=== PATIENT | female | born 1965 | race Caucasian/White ===

== ENCOUNTER 2017-05-24 14:06 | Inpatient (IN) | payer SELFPAY ==
[2017-05-24] MEDS ORDERED: Metoclopramide HCl 10 MG/2 ML VIAL ONE (14:24)
[2017-05-24] MEDS ORDERED: Lorazepam 2 MG/ML VIAL ONE (14:44)
[2017-05-24 14:50] LABS: #Basophils 0.1 thou/uL (0.0-0.2); #Lymphocytes 0.4 thou/uL (1.20-3.40); #Monocytes 0.5 thou/uL (0.11-0.59); #Neutrophils 7.7 thou/uL (1.40-6.50); %Basophils 0.8 % (0.0-1.0); %Eosinophils 0.1 % (0.0-10.0); %Lymphocytes 4.2 % (21.0-51.0); %Monocytes 6.2 % (0.0-10.0); Hematocrit 41.6 % (36.0-47.0); Mean Platelet Volume 6.7 fL (7.4-10.4); White Blood Cell (WBC) Count 8.6 thou/uL (4.8-10.8)
[2017-05-24 15:07] LABS: ALT (SGPT) 50 U/L (8-55); AST (SGOT) 55 U/L (5-34); Alkaline Phosphatase 86 U/L (40-150); Anion Gap 30 mmol/L (10-20); BUN (Urea Nitrogen) 15 mg/dL (7.0-18.7); Bilirubin, Total 0.5 mg/dL (0.2-1.2); Calc. Creatinine Clearance 0 mL/min (70-130); Calcium 8.9 mg/dL (7.8-10.44); Carbon Dioxide 15 mmol/L (22-29); Chloride 101 mmol/L (98-107); Estimated GFR-MDRD 90; Globulin 3.3 g/dL (2.4-3.5); Protein, Total 7.9 g/dL (6.0-8.3)
[2017-05-24 15:12] LABS: Troponin I Less than 0.010 ng/mL (< 0.028)
[2017-05-24] MEDS ORDERED: Ondansetron ODT 4 MG TAB SL PRN (16:15)
[2017-05-24] MEDS ORDERED: Acetaminophen 325 MG TAB PO PRN ×2 (16:15→16:24)
[2017-05-24] MEDS ORDERED: Ondansetron HCl/PF 4 MG/2 ML Vial IVP PRN (16:15)
[2017-05-24] MEDS ORDERED: Lorazepam 2 MG/ML VIAL SLOW IVP PRN ×2 (16:16→16:24)
[2017-05-24] MEDS ORDERED: cloNIDine 0.1 MG TAB PO PRN (16:24)
[2017-05-24] MEDS ORDERED: Temazepam 15 MG CAP PO PRN (16:24)
[2017-05-24] MEDS ORDERED: Mag-Al 1200 mg/1200 mg/30 ML UDCUP PO PRN (16:24)
[2017-05-24] MEDS ORDERED: Milk Of Magnesia 30 ML UDCUP PO PRN (16:24)
[2017-05-24] MEDS ORDERED: Loratadine 10 MG TAB PO PRN (16:24)
[2017-05-24] MEDS ORDERED: Ondansetron ODT 4 MG TAB PO PRN (16:24)
[2017-05-24] MEDS ORDERED: traZODone HCl 50 MG TAB PO PRN (16:24)
[2017-05-24] MEDS ORDERED: Eucerin (Mineral Oil/Petrolatum,White) 30 gm Jar TOP PRN (16:24)
[2017-05-24] MEDS ORDERED: Zolpidem Tartrate 5 MG TAB PO PRN (16:24)
[2017-05-24] MEDS ORDERED: Diabetic Tussin 200 MG/10 ML UDCUP PO PRN (16:24)
[2017-05-24] MEDS ORDERED: Chloraseptic Spray 180 ml Bottle PO PRN (16:24)
[2017-05-24] MEDS ORDERED: Bisacodyl 10 MG SUPP PR PRN (16:24)
[2017-05-24] MEDS ORDERED: Labetalol HCl 100 MG/20 ML VIAL SLOW IVP PRN (16:24)
[2017-05-24] MEDS ORDERED: Sodium Chloride 0.65% Nasal 44 ML BOT EA NARE PRN (16:24)
[2017-05-24] MEDS ORDERED: Artificial Tear Sol 15 ML BOT EA EYE PRN (16:24)
[2017-05-24] MEDS ORDERED: Senokot 8.6 MG TAB PO PRN (16:24)
[2017-05-24] MEDS ORDERED: Loperamide HCl 2 MG CAP PO PRN (16:24)
[2017-05-24 16:54] VITALS: BMI 26.6
--- NOTE | 2017-05-24 17:04 | HP ---
PRIMARY CARE PHYSICIAN: [facility]. REASON FOR ADMISSION: Alcohol withdrawal syndrome. HISTORY OF PRESENT ILLNESS: A 51-year-old female, who has history of chronic alcoholism, who presen kane to the emergency room on 05/22/2017 for alcohol detoxification help. The patient was discharged home on oral Ativan therapy. The patient did very well without drinking for 3 days. Ativan was he lping her anxiety. This morning, the patient was cleaning her house and she found her hidden vodka bottle and she drank again. Subsequently, she was feeling craving for alcohol and she was jittery a nd decided to come to the emergency room. Normally, she drinks about 1 liter of vodka daily basis. The patient is now realizing that she should quit and she is asking for help for detoxification at home is not working well. In the emergency room, the patient was tachycardic. The patient was anxious jittery, hypertensive. The patient also has a previous history of alcohol withdrawal related seizure. In the emergency ro om, she is given 2 liters of IV fluid, Ativan 2 mg and Reglan 10 mg. At this point, we are admittin g this patient for close monitoring. The patient denies any fever. She denies any UTI symptoms. S he denies any constipation, diarrhea, melena, hematochezia. She denies any abdominal pain. She den ies any headache, fever, chills. REVIEW OF SYSTEMS: The following complete review of systems was negative, unless otherwise mentione d in the HPI or below: Constitutional: Weight loss or gain, ability to conduct usual activities. Skin: Rash, itching. Eyes: Double vision, pain. ENT/Mouth: Nose bleeding, neck stiffness, pain, tenderness. Cardiovascular: Palpitations, dyspnea on exertion, orthopnea. Respiratory: Shortness of breath, wheezing, cough, hemoptysis, fever or night sweats. Gastrointestinal: Poor appetite, abdominal pain, heartburn, nausea, vomiting, constipation, or diar cornelius. Genitourinary: Urgency, frequency, dysuria, nocturia. Musculoskeletal: Pain, swelling. Neurologic/Psychiatric: Anxiety, depression. Allergy/Immunologic: Skin rash, bleeding tendency. Please see my HPI for pertinent positives and negatives. All other review of systems reviewed and n egative except as mentioned in the HPI. ALLERGIES: PENICILLIN and SUMATRIPTAN. CURRENT HOME MEDICATIONS: Trazodone 50 mg p.o. at bedtime, Toprol-XL 25 mg p.o. b.i.d., Prozac 20 m g p.o. daily, and buspirone 15 mg twice daily. PAST MEDICAL HISTORY: Chronic alcoholism, history of paroxysmal atrial fibrillation, history of sei zure secondary to alcohol withdrawal. PAST PSYCHIATRIC HISTORY: Generalized anxiety disorder and depression. PAST SURGICAL HISTORY: Total hysterectomy, cholecystectomy. FAMILY HISTORY: The patient's father from pancreatic/liver cancer, one of sister also has alco hol related pancreatic problem, heart disease runs among several family members. SOCIAL HISTORY: The patient is living with significant other. She is drinking about one gallon vod ka daily basis. She smokes half a pack per day. She denies any other illicit drug abuse. EMERGENCY ROOM COURSE: The patient is given lorazepam 2 mg, IV fluid 2 liters and Reglan 10 mg. PHYSICAL EXAMINATION: VITAL SIGNS: Currently, blood pressure 137/81, pulse 144, respiratory rate 20, temperature 98.3, sa turation 95% on room air, weight 68 kilograms. GENERAL: The patient is currently alert, awake, appears anxious, apprehensive, no obvious acute dis tress. HEENT: Head is normocephalic, atraumatic. Eyes: Pupils round, reactive to light. Extraocular mus cles intact. ENT: Oropharynx within normal limits. Moist mucous membranes. No oral lesions. No pharyngeal maddie thema, no exudate. NECK: Supple. Range of motion is normal. No meningeal signs of irritation. LUNGS: Clear to auscultation without any rhonchi or rales. CARDIAC: S1 and S2 regular, tachycardia, no murmur, no gallop, no rub. ABDOMEN: Soft, bowel sounds present, nontender, nondistended. No organomegaly, no mass, no suprapu bic tenderness. BACK: Unremarkable, no CVA tenderness. EXTREMITIES: Upper extremity passive movement of all joints are normal, generalized tremor noted. EXTREMITIES: Lower extremity: No edema. Good peripheral pulsation. SKIN: No skin rash. HEMATOLOGICAL: No lymphadenopathy. PSYCHIATRIC: Anxious affect. NEUROLOGIC: Nonfocal examination other than generalized tremor. SIGNIFICANT LABORATORY DATA: EKG shows sinus tachycardia. WBC 8.6, hemoglobin 14.6, MCV 102.0, damir telets 178. BMP shows sodium 141, potassium 5.0, chloride 101, carbon dioxide 815, anion gap 30, BU N 15, creatinine 0.69, glucose 137, calcium 8.9. LFTs: AST 55, ALT 50, alkaline phosphatase 86, albumin 4.6. Alcohol level 234. ASSESSMENT AND PLAN: 1. Acute alcohol withdrawal syndrome. The patient has sinus tachycardia, anxiety, generalized trem or with a history of chronic alcoholism. At this point, the patient wants help for alcohol detoxifi cation, we will keep this patient on medical floor. We will treat her with lorazepam 1 or 2 mg IV q .4 hourly p.r.n. We will watch for any alcohol withdrawal related seizure. We will also give her L ibrium 25 mg t.i.d., Valium 5 mg p.o. b.i.d. We will check magnesium, phosphorus level. We will gi ve her clonidine p.r.n. basis for blood pressure and symptomatically treat for nausea and vomiting. We will also give her banana bag. 2. Chronic alcoholism. We will give her banana bag with IV fluid and after that we will consider c hanging to folic acid, thiamine, and vitamin B12 orally. 3. Macrocytic anemia, likely due to alcohol abuse. Continue banana bag for now and after that will change to folic acid, vitamin B12, and thiamine orally. 4. Anion gap acidosis due to liquor use, we will repeat BMP tomorrow. 5. Tobacco abuse disorder. Smoking cessation counseling given. We will offer nicotine patch while in hospital. 6. Sinus tachycardia likely related with a part of alcohol withdrawal syndrome and we will also con tinue with metoprolol 25 mg twice daily. 7. Anxiety and depression. We will continue Prozac 20 mg p.o. daily, buspirone 15 mg twice daily a nd trazodone 50 mg p.o. at bedtime. 8. Deep venous thrombosis prophylaxis, Lovenox 30 mg subcutaneously daily. 9. Gastrointestinal prophylaxis. Pepcid 20 mg IV b.i.d. 10. Code status: The patient is FULL CODE. The patient does not have a surrogate decision maker. 11. Hypertension. We will continue metoprolol 25 mg twice daily and p.r.n. basis blood pressure me dication. Disposition plan based on clinical course. Most likely, the patient will stay in hospital more than 2 midnights. Plan of care discussed with the patient in detail.
[2017-05-24] MEDS ORDERED: FLU VACC QS2017-18 36 mo. & older 0.5 ML SYRINGE IM ONE (17:15)
[2017-05-24] MEDS: Multivitamins, Adult 10 ML, Folic Acid 1 MG, Thiamine HCl 100 MG in Dextrose 5 %-0.45 %... IV SCH ×4 (17:17)
[2017-05-24] MEDS: Sodium Chloride 0.9% 1,000 ML IV SCH (17:21)
[2017-05-24] MEDS: Nicotine 14 MG PATCH TD SCH (17:26)
[2017-05-24] MEDS: Metoprolol Tartrate 25 MG TAB PO SCH ×2 (18:03→20:16)
[2017-05-24] MEDS ORDERED: Metoprolol Tartrate 25 MG TAB PO SCH (18:15)
[2017-05-24] MEDS: busPIRone HCl 5 MG TAB PO SCH (20:14)
[2017-05-24] MEDS: Diazepam 5 MG TAB PO SCH (20:15)
[2017-05-24] MEDS: Famotidine/PF 20 mg/2ml Vial SLOW IVP SCH (20:16)
[2017-05-25] MEDS: Lorazepam 1 MG TAB PO PRN (00:25)
[2017-05-25] MEDS: Sodium Chloride 0.9% 1,000 ML IV SCH (00:58)
[2017-05-25 05:08] LABS: #Lymphocytes 1.3 thou/uL (1.20-3.40); #Monocytes 0.8 thou/uL (0.11-0.59); #Neutrophils 3.7 thou/uL (1.40-6.50); %Basophils 0.1 % (0.0-1.0); %Eosinophils 0.5 % (0.0-10.0); %Lymphocytes 21.7 % (21.0-51.0); %Monocytes 13.4 % (0.0-10.0); Hematocrit 38.6 % (36.0-47.0); Mean Platelet Volume 7.4 fL (7.4-10.4); White Blood Cell (WBC) Count 5.8 thou/uL (4.8-10.8)
[2017-05-25 05:45] LABS: ALT (SGPT) 39 U/L (8-55); AST (SGOT) 42 U/L (5-34); Alkaline Phosphatase 70 U/L (40-150); Anion Gap 13 mmol/L (10-20); BUN (Urea Nitrogen) 9 mg/dL (7.0-18.7); Bilirubin, Total 0.9 mg/dL (0.2-1.2); Calc. Creatinine Clearance 113 mL/min (70-130); Calcium 8.9 mg/dL (7.8-10.44); Carbon Dioxide 27 mmol/L (22-29); Chloride 100 mmol/L (98-107); Estimated GFR-MDRD Greater than 90; Globulin 2.9 g/dL (2.4-3.5); Magnesium 1.8 mg/dL (1.6-2.6); Phosphorus 1.7 mg/dL (2.3-4.7)
[2017-05-25] MEDS: Enoxaparin Sodium 40 MG/0.4 ML SYRINGE SC SCH (07:55)
[2017-05-25] MEDS: busPIRone HCl 5 MG TAB PO SCH ×2 (07:55→20:34)
[2017-05-25] MEDS: Diazepam 5 MG TAB PO SCH ×2 (07:56→20:35)
[2017-05-25] MEDS: FLUoxetine HCl 20 MG CAP PO SCH (07:57)
[2017-05-25] MEDS: Metoprolol Tartrate 25 MG TAB PO SCH ×2 (07:57→20:36)
[2017-05-25] MEDS: Famotidine/PF 20 mg/2ml Vial SLOW IVP SCH ×2 (07:58→20:37)
[2017-05-25] MEDS: Nicotine 14 MG PATCH TD SCH (11:05)
--- NOTE | 2017-05-25 13:24 | PDOC.PN ---
- Subjective Encounter Start Date: 05/25/17 Encounter Start Time: 07:45 Patient seen and examined. No overnight events, still pt is anxious - Objective Resuscitation Status: Resuscitation Status FULL:Full Resuscitation MAR Reviewed: Yes Vital Signs & Weight: Vital Signs (12 hours) Temp Pulse Resp BP BP Pulse Ox 05/25/17 11:57 98.6 F 89 16 169/98 H 99 05/25/17 08:00 98.1 F 103 H 18 99 05/25/17 07:15 98.1 F 103 H 18 139/80 99 05/25/17 04:00 98.9 F 104 H 20 150/92 H 150/92 H 97 Weight Weight 155 lb I&O: 05/24/17 05/25/17 05/26/17 06:59 06:59 06:59 Intake Total 740 180 Output Total 600 Balance 140 180 Result Diagrams: 05/25/17 04:48 05/25/17 04:48 Phys Exam - Physical Examination Constitutional: NAD HEENT: PERRLA, moist MMs, sclera anicteric Neck: no JVD, supple Respiratory: no wheezing, no rales, no rhonchi Cardiovascular: RRR, no significant murmur, no rub Gastrointestinal: soft, non-tender, no distention, positive bowel sounds Musculoskeletal: no edema, pulses present Neurological: non-focal, normal sensation Lymphatic: no nodes Psychiatric: normal affect, A&O x 3 Skin: no rash, normal turgor Dx/Plan (1) Abnormal blood electrolyte level Code(s): E87.8 - OTH DISORDERS OF ELECTROLYTE AND FLUID BALANCE, NEC Status: Acute (2) Alcohol withdrawal syndrome Code(s): F10.239 - ALCOHOL DEPENDENCE WITH WITHDRAWAL, UNSPECIFIED Status: Acute (3) High anion gap metabolic acidosis Code(s): E87.2 - ACIDOSIS Status: Acute (4) Sinus tachycardia Code(s): R00.0 - TACHYCARDIA, UNSPECIFIED Status: Acute (5) Abnormal LFTs Code(s): R79.89 - OTHER SPECIFIED ABNORMAL FINDINGS OF BLOOD CHEMISTRY Status : Chronic (6) Alcohol abuse Code(s): F10.10 - ALCOHOL ABUSE, UNCOMPLICATED Status: Chronic (7) Cannabis abuse Code(s): F12.10 - CANNABIS ABUSE, UNCOMPLICATED Status: Chronic (8) Fatty liver, alcoholic Code(s): K70.0 - ALCOHOLIC FATTY LIVER Status: Chronic (9) Macrocytosis Code(s): D75.89 - OTHER SPECIFIED DISEASES OF BLOOD AND BLOOD-FORMING ORGANS Status: Chronic (10) Tobacco abuse Code(s): Z72.0 - TOBACCO USE Status: Chronic - Plan cont current plan of care * continue banana bag today * continue to treat for alcohol withdrawl * replace phosphorus * medication reviewed as below * symptomatic treatment. Review of Systems - Review of Systems ENT: negative: Ear Pain, Ear Discharge, Nose Pain, Nose Discharge, Nose Congestion, Mouth Pain, Mouth Swelling, Throat Pain, Throat Swelling, Other Respiratory: negative: Cough, Dry, Shortness of Breath, Hemoptysis, SOB with Excertion, Pleuritic Pain, Sputum, Wheezing Cardiovascular: negative: Chest Pain, Palpitations, Orthopnea, Paroxysmal Noc. Dyspnea, Edema, Light Headedness, Other Gastrointestinal: negative: Nausea, Vomiting, Abdominal Pain, Diarrhea, Constipation, Melena, Hematochezia, Other Genitourinary: negative: Dysuria, Frequency, Incontinence, Hematuria, Retention , Other Musculoskeletal: negative: Neck Pain, Shoulder Pain, Arm Pain, Back Pain, Hand Pain, Leg Pain, Foot Pain, Other - Medications/Allergies Allergies/Adverse Reactions: Allergies Allergy/AdvReac Type Severity Reaction Status Date / Time Penicillins Allergy Verified 01/24/17 08:44 sumatriptan [From Imitrex] Allergy Verified 07/15/15 17:54 sumatriptan succinate Allergy Verified 01/24/17 08:44 [From Imitrex] Medications: Current Medications Acetaminophen (Tylenol) 650 mg PO Q4H PRN PRN Reason: Headache/Fever or Pain Hydrocodone Bitart/Acetaminophen ([place] 5/325) 1 tab PO Q4H PRN PRN Reason: Moderate Pain (4-6) Al Hydroxide/Mg Hydroxide (Maalox) 30 ml PO Q6H PRN PRN Reason: Heartburn or Indigestion Artificial Tears (Tears Renewed 15ml Bottle) 0 drop EA EYE PRN PRN PRN Reason: Dry Eyes Bisacodyl (Dulcolax) 10 mg AL Q24H PRN PRN Reason: Constipation Buspirone HCl (Buspar) 15 mg PO BID [facility] Last Admin: 05/25/17 07:55 Dose: 15 mg Chlordiazepoxide HCl (Librium) 10 mg PO TID [facility] Last Admin: 05/25/17 07:56 Dose: 10 mg Clonidine (Catapres) 0.1 mg PO Q4H PRN PRN Reason: Systolic BP > 180 Diazepam (Valium) 5 mg PO BID [facility] Last Admin: 05/25/17 07:56 Dose: 5 mg Enoxaparin Sodium (Lovenox) 40 mg SC 0900 [facility] Last Admin: 05/25/17 07:55 Dose: 40 mg Famotidine (Pepcid) 20 mg SLOW IVP Q12HR [facility] Last Admin: 05/25/17 07:58 Dose: 20 mg Fluoxetine HCl (Prozac) 20 mg PO DAILY [facility] Last Admin: 05/25/17 07:57 Dose: 20 mg Guaifenesin (Robitussin Sf) 200 mg PO Q4H PRN PRN Reason: Cough Multivitamins 10 ml/ Folic Acid 1 mg/ Thiamine HCl 100 mg / Dextrose/Sodium Chloride 1,011.2 mls @ 125 mls/hr IV Q24HR [facility] Last Admin: 05/24/17 17:17 Dose: 1,011.2 mls Labetalol HCl (Normodyne) 20 mg SLOW IVP Q4H PRN PRN Reason: Systolic BP > 180 Loperamide HCl (Imodium) 2 mg PO PRN PRN PRN Reason: Diarrhea/Loose Stools Loratadine (Claritin) 10 mg PO DAILYPRN PRN PRN Reason: Sinus Symptoms Lorazepam (Ativan) 1 mg SLOW IVP Q4H PRN PRN Reason: Anxiety/Agitation Lorazepam (Ativan) 1 mg PO Q4H PRN PRN Reason: Anxiety/Agitation Last Admin: 05/25/17 00:25 Dose: 1 mg Magnesium Hydroxide (Milk Of Magnesium) 30 ml PO DAILYPRN PRN PRN Reason: Constipation Metoprolol Tartrate (Lopressor) 25 mg PO BID [facility] Last Admin: 05/25/17 07:57 Dose: 25 mg Mineral Oil/White Petrolatum (Eucerin Cream) 0 gm TOP BIDPRN PRN PRN Reason: Dry Skin Miscellaneous Medication (Phos-Nak) 1 pkt PO TID-[facility] Last Admin: 05/25/17 11:05 Dose: 1 pkt Nicotine (Nicoderm Patch) 14 mg TD Q24HR [facility] Last Admin: 05/25/17 11:05 Dose: 14 mg Ondansetron HCl (Zofran Odt) 4 mg PO Q6H PRN PRN Reason: Nausea/Vomiting Last Admin: 05/24/17 20:16 Dose: 4 mg Ondansetron HCl (Zofran) 4 mg IVP Q6H PRN PRN Reason: Nausea/Vomiting Phenol (Chloraseptic [place] 180 Ml Bot) 0 ml PO PRN PRN PRN Reason: Sore Throat Senna (Senokot) 2 tab PO HSPRN PRN PRN Reason: Constipation Sodium Chloride ([place] Nasal [place] 0.65%) 0 ml EA NARE QIDPRN PRN PRN Reason: Nasal Congestion Temazepam (Restoril) 15 mg PO HSPRN PRN PRN Reason: Insomnia Trazodone HCl (Desyrel) 50 mg PO HS PRN PRN Reason: Insomnia Zolpidem Tartrate (Ambien) 5 mg PO HSPRN PRN PRN Reason: Insomnia
[2017-05-25] MEDS ORDERED: Clopidogrel Bisulfate 75 MG TAB ONE (16:53)
[2017-05-25] MEDS: Multivitamins, Adult 10 ML, Folic Acid 1 MG, Thiamine HCl 100 MG in Dextrose 5 %-0.45 %... IV SCH ×4 (17:46)
[2017-05-25] MEDS: Ondansetron HCl/PF 4 MG/2 ML Vial IVP PRN (23:08)
[2017-05-26] MEDS: Lorazepam 1 MG TAB PO PRN (00:04)
[2017-05-26] MEDS ORDERED: Potassium Phosphate 15 MMOL, Admixture Fee 1 EACH in Sodium Chloride 0.9% 250 ML 250 ML IVPB SCH (06:45)
[2017-05-26] MEDS: Ondansetron HCl/PF 4 MG/2 ML Vial IVP PRN ×2 (08:11→15:50)
[2017-05-26] MEDS ORDERED: Sodium Phosphate 30 MMOL, Admixture Fee 1 EACH in Sodium Chloride 0.9% 500 ML IVPB SCH (08:15)
[2017-05-26] MEDS: Enoxaparin Sodium 40 MG/0.4 ML SYRINGE SC SCH (08:19)
[2017-05-26] MEDS: Diazepam 5 MG TAB PO SCH ×2 (08:20→20:48)
[2017-05-26] MEDS: Famotidine/PF 20 mg/2ml Vial SLOW IVP SCH ×2 (08:20→20:51)
[2017-05-26] MEDS: Metoprolol Tartrate 25 MG TAB PO SCH ×2 (08:20→20:48)
[2017-05-26] MEDS: FLUoxetine HCl 20 MG CAP PO SCH (08:20)
[2017-05-26] MEDS: busPIRone HCl 5 MG TAB PO SCH ×2 (08:20→20:48)
[2017-05-26] MEDS: HYDROcodone/Acetaminophen 5/325 mg Tablet PO PRN ×3 (09:24→20:40)
--- NOTE | 2017-05-26 13:26 | PDOC.PN ---
- Subjective Encounter Start Date: 05/26/17 Encounter Start Time: 10:30 Patient seen and examined. No new complaints. No overnight events - Objective Resuscitation Status: Resuscitation Status FULL:Full Resuscitation MAR Reviewed: Yes Vital Signs & Weight: Vital Signs (12 hours) Temp Pulse Resp BP BP Pulse Ox 05/26/17 11:47 98.0 F 96 16 102/64 99 05/26/17 08:00 98.1 F 104 H 16 130/79 130/79 100 05/26/17 04:00 98.2 F 90 20 164/84 H 99 Weight Admit Weight 155 lb Weight 155 lb I&O: 05/25/17 05/26/17 05/27/17 06:59 06:59 06:59 Intake Total 740 580 200 Output Total 600 Balance 140 580 200 Result Diagrams: 05/25/17 04:48 05/25/17 04:48 Phys Exam - Physical Examination Constitutional: NAD HEENT: PERRLA, moist MMs, sclera anicteric Neck: no JVD, supple Respiratory: no wheezing, no rales, no rhonchi Cardiovascular: RRR, no significant murmur, no rub Gastrointestinal: soft, non-tender, no distention, positive bowel sounds Musculoskeletal: no edema, pulses present Neurological: non-focal, normal sensation, moves all 4 limbs Psychiatric: normal affect, A&O x 3 Skin: no rash, normal turgor Dx/Plan (1) Abnormal blood electrolyte level Code(s): E87.8 - OTH DISORDERS OF ELECTROLYTE AND FLUID BALANCE, NEC Status: Acute (2) Alcohol withdrawal syndrome Code(s): F10.239 - ALCOHOL DEPENDENCE WITH WITHDRAWAL, UNSPECIFIED Status: Acute (3) High anion gap metabolic acidosis Code(s): E87.2 - ACIDOSIS Status: Acute (4) Sinus tachycardia Code(s): R00.0 - TACHYCARDIA, UNSPECIFIED Status: Acute (5) Abnormal LFTs Code(s): R79.89 - OTHER SPECIFIED ABNORMAL FINDINGS OF BLOOD CHEMISTRY Status : Chronic (6) Alcohol abuse Code(s): F10.10 - ALCOHOL ABUSE, UNCOMPLICATED Status: Chronic (7) Cannabis abuse Code(s): F12.10 - CANNABIS ABUSE, UNCOMPLICATED Status: Chronic (8) Fatty liver, alcoholic Code(s): K70.0 - ALCOHOLIC FATTY LIVER Status: Chronic (9) Macrocytosis Code(s): D75.89 - OTHER SPECIFIED DISEASES OF BLOOD AND BLOOD-FORMING ORGANS Status: Chronic (10) Tobacco abuse Code(s): Z72.0 - TOBACCO USE Status: Chronic - Plan cont current plan of care * replace potassium phosphate * continue to treat for alcohol withdrawl * expecting discharge tomorrow * medication reviewed as below * symptomatic treatment. Review of Systems - Review of Systems ENT: negative: Ear Pain, Ear Discharge, Nose Pain, Nose Discharge, Nose Congestion, Mouth Pain, Mouth Swelling, Throat Pain, Throat Swelling, Other Respiratory: negative: Cough, Dry, Shortness of Breath, Hemoptysis, SOB with Excertion, Pleuritic Pain, Sputum, Wheezing Cardiovascular: negative: Chest Pain, Palpitations, Orthopnea, Paroxysmal Noc. Dyspnea, Edema, Light Headedness, Other Gastrointestinal: negative: Nausea, Vomiting, Abdominal Pain, Diarrhea, Constipation, Melena, Hematochezia, Other Genitourinary: negative: Dysuria, Frequency, Incontinence, Hematuria, Retention , Other Musculoskeletal: negative: Neck Pain, Shoulder Pain, Arm Pain, Back Pain, Hand Pain, Leg Pain, Foot Pain, Other Skin: negative: Rash, Lesions, Daniel, Bruising, Other - Medications/Allergies Allergies/Adverse Reactions: Allergies Allergy/AdvReac Type Severity Reaction Status Date / Time Penicillins Allergy Verified 01/24/17 08:44 sumatriptan [From Imitrex] Allergy Verified 07/15/15 17:54 sumatriptan succinate Allergy Verified 01/24/17 08:44 [From Imitrex] Medications: Current Medications Acetaminophen (Tylenol) 650 mg PO Q4H PRN PRN Reason: Headache/Fever or Pain Last Admin: 05/26/17 06:37 Dose: 650 mg Hydrocodone Bitart/Acetaminophen ([place] 5/325) 1 tab PO Q4H PRN PRN Reason: Moderate Pain (4-6) Last Admin: 05/26/17 09:24 Dose: 1 tab Al Hydroxide/Mg Hydroxide (Maalox) 30 ml PO Q6H PRN PRN Reason: Heartburn or Indigestion Artificial Tears (Tears Renewed 15ml Bottle) 0 drop EA EYE PRN PRN PRN Reason: Dry Eyes Bisacodyl (Dulcolax) 10 mg [place] Q24H PRN PRN Reason: Constipation Buspirone HCl (Buspar) 15 mg PO BID [facility] Last Admin: 05/26/17 08:20 Dose: 15 mg Chlordiazepoxide HCl (Librium) 10 mg PO TID [facility] Last Admin: 05/26/17 09:50 Dose: 10 mg Clonidine (Catapres) 0.1 mg PO Q4H PRN PRN Reason: Systolic BP > 180 Diazepam (Valium) 5 mg PO BID [facility] Last Admin: 05/26/17 08:20 Dose: 5 mg Enoxaparin Sodium (Lovenox) 40 mg SC 0900 [facility] Last Admin: 05/26/17 08:19 Dose: Not Given Famotidine (Pepcid) 20 mg SLOW IVP Q12HR [facility] Last Admin: 05/26/17 08:20 Dose: 20 mg Fluoxetine HCl (Prozac) 20 mg PO DAILY [facility] Last Admin: 05/26/17 08:20 Dose: 20 mg Guaifenesin (Robitussin Sf) 200 mg PO Q4H PRN PRN Reason: Cough Multivitamins 10 ml/ Folic Acid 1 mg/ Thiamine HCl 100 mg / Dextrose/Sodium Chloride 1,011.2 mls @ 125 mls/hr IV Q24HR [facility] Last Admin: 05/25/17 17:46 Dose: 1,011.2 mls Sodium Phosphate 30 mmol/Miscellaneous Medication 1 each/ Sodium Chloride 510 mls @ 63.75 mls/hr IVPB NOW [facility] Stop: 05/26/17 16:00 Last Admin: 05/26/17 09:08 Dose: Not Given Labetalol HCl (Normodyne) 20 mg SLOW IVP Q4H PRN PRN Reason: Systolic BP > 180 Loperamide HCl (Imodium) 2 mg PO PRN PRN PRN Reason: Diarrhea/Loose Stools Loratadine (Claritin) 10 mg PO DAILYPRN PRN PRN Reason: Sinus Symptoms Lorazepam (Ativan) 1 mg SLOW IVP Q4H PRN PRN Reason: Anxiety/Agitation Lorazepam (Ativan) 1 mg PO Q4H PRN PRN Reason: Anxiety/Agitation Last Admin: 05/26/17 00:04 Dose: 1 mg Magnesium Hydroxide (Milk Of Magnesium) 30 ml PO DAILYPRN PRN PRN Reason: Constipation Metoprolol Tartrate (Lopressor) 25 mg PO BID [facility] Last Admin: 05/26/17 08:20 Dose: 25 mg Mineral Oil/White Petrolatum (Eucerin Cream) 0 gm TOP BIDPRN PRN PRN Reason: Dry Skin Miscellaneous Medication (Phos-Nak) 1 pkt PO TID-[facility] Last Admin: 05/26/17 12:51 Dose: 1 pkt Nicotine (Nicoderm Patch) 14 mg TD Q24HR [facility] Last Admin: 05/25/17 11:05 Dose: 14 mg Ondansetron HCl (Zofran Odt) 4 mg PO Q6H PRN PRN Reason: Nausea/Vomiting Last Admin: 05/24/17 20:16 Dose: 4 mg Ondansetron HCl (Zofran) 4 mg IVP Q6H PRN PRN Reason: Nausea/Vomiting Last Admin: 05/26/17 08:11 Dose: 4 mg Phenol (Chloraseptic [place] 180 Ml Bot) 0 ml PO PRN PRN PRN Reason: Sore Throat Senna (Senokot) 2 tab PO HSPRN PRN PRN Reason: Constipation Sodium Chloride ([place] Nasal [place] 0.65%) 0 ml EA NARE QIDPRN PRN PRN Reason: Nasal Congestion Sodium Chloride (Flush - Normal Saline) 10 ml IVF Q12HR [facility] Last Admin: 05/26/17 08:12 Dose: 10 ml Sodium Chloride (Flush - Normal Saline) 10 ml IVF PRN PRN PRN Reason: Saline Flush Temazepam (Restoril) 15 mg PO HSPRN PRN PRN Reason: Insomnia Trazodone HCl (Desyrel) 50 mg PO HS PRN PRN Reason: Insomnia Zolpidem Tartrate (Ambien) 5 mg PO HSPRN PRN PRN Reason: Insomnia
[2017-05-26] MEDS: Multivitamins, Adult 10 ML, Folic Acid 1 MG, Thiamine HCl 100 MG in Dextrose 5 %-0.45 %... IV SCH ×4 (17:36)
[2017-05-26] MEDS: Nicotine 14 MG PATCH TD SCH (17:41)
[2017-05-27 04:46] LABS: #Eosinphils 0.1 thou/uL (0.0-0.7); #Lymphocytes 1.5 thou/uL (1.20-3.40); #Monocytes 0.5 thou/uL (0.11-0.59); #Neutrophils 1.6 thou/uL (1.40-6.50); %Basophils 0.6 % (0.0-1.0); %Eosinophils 1.6 % (0.0-10.0); %Lymphocytes 40.8 % (21.0-51.0); %Monocytes 12.7 % (0.0-10.0); Hematocrit 37.1 % (36.0-47.0); Mean Platelet Volume 8.2 fL (7.4-10.4); Red Blood Cell (RBC) Count 3.66 mill/uL (4.20-5.40); White Blood Cell (WBC) Count 3.6 thou/uL (4.8-10.8)
[2017-05-27 05:39] LABS: Anion Gap 12 mmol/L (10-20); BUN (Urea Nitrogen) 9 mg/dL (7.0-18.7); Calc. Creatinine Clearance 117 mL/min (70-130); Calcium 9.5 mg/dL (7.8-10.44); Carbon Dioxide 29 mmol/L (22-29); Chloride 102 mmol/L (98-107); Estimated GFR-MDRD Greater than 90; Magnesium 1.6 mg/dL (1.6-2.6)
--- NOTE | 2017-05-27 05:54 | PDOC.PN ---
- Subjective Encounter Start Date: 05/27/17 Encounter Start Time: 05:52 Patient seen and examined. No new complaints. No overnight events - Objective Resuscitation Status: Resuscitation Status FULL:Full Resuscitation MAR Reviewed: Yes Vital Signs & Weight: Vital Signs (12 hours) Temp Pulse Resp BP BP Pulse Ox 05/27/17 00:00 98.0 F 88 18 133/87 133/87 98 05/26/17 20:00 98.1 F 96 18 155/95 H 155/95 H 100 05/26/17 19:43 98.1 F 96 16 100 Weight Admit Weight 155 lb Weight 155 lb I&O: 05/25/17 05/26/17 05/27/17 06:59 06:59 06:59 Intake Total 567 699 5225 Output Total 600 Balance 778 261 7373 Result Diagrams: 05/27/17 03:44 05/27/17 03:44 Phys Exam - Physical Examination Constitutional: NAD HEENT: PERRLA, moist MMs, sclera anicteric Neck: no JVD, supple Respiratory: no wheezing, no rales, no rhonchi Cardiovascular: RRR, no significant murmur, no rub Gastrointestinal: soft, non-tender, no distention, positive bowel sounds Musculoskeletal: no edema, pulses present Neurological: non-focal, normal sensation Lymphatic: no nodes Psychiatric: normal affect, A&O x 3 Skin: no rash, normal turgor Dx/Plan (1) Abnormal blood electrolyte level Code(s): E87.8 - OTH DISORDERS OF ELECTROLYTE AND FLUID BALANCE, NEC Status: Acute (2) Alcohol withdrawal syndrome Code(s): F10.239 - ALCOHOL DEPENDENCE WITH WITHDRAWAL, UNSPECIFIED Status: Acute (3) High anion gap metabolic acidosis Code(s): E87.2 - ACIDOSIS Status: Acute (4) Sinus tachycardia Code(s): R00.0 - TACHYCARDIA, UNSPECIFIED Status: Acute (5) Abnormal LFTs Code(s): R79.89 - OTHER SPECIFIED ABNORMAL FINDINGS OF BLOOD CHEMISTRY Status : Chronic (6) Alcohol abuse Code(s): F10.10 - ALCOHOL ABUSE, UNCOMPLICATED Status: Chronic (7) Cannabis abuse Code(s): F12.10 - CANNABIS ABUSE, UNCOMPLICATED Status: Chronic (8) Fatty liver, alcoholic Code(s): K70.0 - ALCOHOLIC FATTY LIVER Status: Chronic (9) Macrocytosis Code(s): D75.89 - OTHER SPECIFIED DISEASES OF BLOOD AND BLOOD-FORMING ORGANS Status: Chronic (10) Tobacco abuse Code(s): Z72.0 - TOBACCO USE Status: Chronic - Plan cont current plan of care * medication reviewed as below * symptomatic treatment * today will plan for discharge * outpt alcohol rehab program advised * counselled to avoid alcohol. Review of Systems - Review of Systems ENT: negative: Ear Pain, Ear Discharge, Nose Pain, Nose Discharge, Nose Congestion, Mouth Pain, Mouth Swelling, Throat Pain, Throat Swelling, Other Respiratory: negative: Cough, Dry, Shortness of Breath, Hemoptysis, SOB with Excertion, Pleuritic Pain, Sputum, Wheezing Cardiovascular: negative: Chest Pain, Palpitations, Orthopnea, Paroxysmal Noc. Dyspnea, Edema, Light Headedness, Other Gastrointestinal: negative: Nausea, Vomiting, Abdominal Pain, Diarrhea, Constipation, Melena, Hematochezia, Other Genitourinary: negative: Dysuria, Frequency, Incontinence, Hematuria, Retention , Other Musculoskeletal: negative: Neck Pain, Shoulder Pain, Arm Pain, Back Pain, Hand Pain, Leg Pain, Foot Pain, Other - Medications/Allergies Allergies/Adverse Reactions: Allergies Allergy/AdvReac Type Severity Reaction Status Date / Time Penicillins Allergy Verified 01/24/17 08:44 sumatriptan [From Imitrex] Allergy Verified 07/15/15 17:54 sumatriptan succinate Allergy Verified 01/24/17 08:44 [From Imitrex] Medications: Current Medications Acetaminophen (Tylenol) 650 mg PO Q4H PRN PRN Reason: Headache/Fever or Pain Last Admin: 05/26/17 06:37 Dose: 650 mg Hydrocodone Bitart/Acetaminophen ([place] 5/325) 1 tab PO Q4H PRN PRN Reason: Moderate Pain (4-6) Last Admin: 05/26/17 20:40 Dose: 1 tab Al Hydroxide/Mg Hydroxide (Maalox) 30 ml PO Q6H PRN PRN Reason: Heartburn or Indigestion Artificial Tears (Tears Renewed 15ml Bottle) 0 drop EA EYE PRN PRN PRN Reason: Dry Eyes Bisacodyl (Dulcolax) 10 mg RI Q24H PRN PRN Reason: Constipation Buspirone HCl (Buspar) 15 mg PO BID [facility] Last Admin: 05/26/17 20:48 Dose: 15 mg Chlordiazepoxide HCl (Librium) 10 mg PO TID [facility] Last Admin: 05/26/17 20:55 Dose: 10 mg Clonidine (Catapres) 0.1 mg PO Q4H PRN PRN Reason: Systolic BP > 180 Diazepam (Valium) 5 mg PO BID [facility] Last Admin: 05/26/17 20:48 Dose: 5 mg Enoxaparin Sodium (Lovenox) 40 mg SC 0900 [facility] Last Admin: 05/26/17 08:19 Dose: Not Given Famotidine (Pepcid) 20 mg SLOW IVP Q12HR [facility] Last Admin: 05/26/17 20:51 Dose: 20 mg Fluoxetine HCl (Prozac) 20 mg PO DAILY [facility] Last Admin: 05/26/17 08:20 Dose: 20 mg Guaifenesin (Robitussin Sf) 200 mg PO Q4H PRN PRN Reason: Cough Multivitamins 10 ml/ Folic Acid 1 mg/ Thiamine HCl 100 mg / Dextrose/Sodium Chloride 1,011.2 mls @ 125 mls/hr IV Q24HR [facility] Last Admin: 05/26/17 17:36 Dose: 1,011.2 mls Labetalol HCl (Normodyne) 20 mg SLOW IVP Q4H PRN PRN Reason: Systolic BP > 180 Loperamide HCl (Imodium) 2 mg PO PRN PRN PRN Reason: Diarrhea/Loose Stools Loratadine (Claritin) 10 mg PO DAILYPRN PRN PRN Reason: Sinus Symptoms Lorazepam (Ativan) 1 mg SLOW IVP Q4H PRN PRN Reason: Anxiety/Agitation Lorazepam (Ativan) 1 mg PO Q4H PRN PRN Reason: Anxiety/Agitation Last Admin: 05/26/17 00:04 Dose: 1 mg Magnesium Hydroxide (Milk Of Magnesium) 30 ml PO DAILYPRN PRN PRN Reason: Constipation Metoprolol Tartrate (Lopressor) 25 mg PO BID [facility] Last Admin: 05/26/17 20:48 Dose: 25 mg Mineral Oil/White Petrolatum (Eucerin Cream) 0 gm TOP BIDPRN PRN PRN Reason: Dry Skin Miscellaneous Medication (Phos-Nak) 1 pkt PO TID[facility] Last Admin: 05/26/17 17:39 Dose: 1 pkt Nicotine (Nicoderm Patch) 14 mg TD Q24HR [facility] Last Admin: 05/26/17 17:41 Dose: 14 mg Ondansetron HCl (Zofran Odt) 4 mg PO Q6H PRN PRN Reason: Nausea/Vomiting Last Admin: 05/24/17 20:16 Dose: 4 mg Ondansetron HCl (Zofran) 4 mg IVP Q6H PRN PRN Reason: Nausea/Vomiting Last Admin: 05/26/17 15:50 Dose: 4 mg Phenol (Chloraseptic [place] 180 Ml Bot) 0 ml PO PRN PRN PRN Reason: Sore Throat Senna (Senokot) 2 tab PO HSPRN PRN PRN Reason: Constipation Sodium Chloride ([place] Nasal [place] 0.65%) 0 ml EA NARE QIDPRN PRN PRN Reason: Nasal Congestion Sodium Chloride (Flush - Normal Saline) 10 ml IVF Q12HR [facility] Last Admin: 05/26/17 20:49 Dose: Not Given Sodium Chloride (Flush - Normal Saline) 10 ml IVF PRN PRN PRN Reason: Saline Flush Temazepam (Restoril) 15 mg PO HSPRN PRN PRN Reason: Insomnia Trazodone HCl (Desyrel) 50 mg PO HS PRN PRN Reason: Insomnia Zolpidem Tartrate (Ambien) 5 mg PO HSPRN PRN PRN Reason: Insomnia
[2017-05-27] MEDS: FLUoxetine HCl 20 MG CAP PO SCH (07:43)
[2017-05-27] MEDS: Metoprolol Tartrate 25 MG TAB PO SCH (07:43)
[2017-05-27] MEDS: busPIRone HCl 5 MG TAB PO SCH (07:43)
[2017-05-27] MEDS: Enoxaparin Sodium 40 MG/0.4 ML SYRINGE SC SCH (07:44)
[2017-05-27] MEDS: Diazepam 5 MG TAB PO SCH (07:44)
[2017-05-27] MEDS: Famotidine/PF 20 mg/2ml Vial SLOW IVP SCH (07:44)
[2017-05-27 08:00] VITALS: BP 150/90; TEMP 98.2
--- NOTE | 2017-05-27 10:21 | DIS ---
PRIMARY CARE PHYSICIAN: [facility] DATE OF ADMISSION: 05/24/2017 DATE OF DISCHARGE: 05/27/2017 DISCHARGE DISPOSITION: Home. PRIMARY DISCHARGE DIAGNOSES: 1. Acute alcohol withdrawal syndrome. 2. Anion gap metabolic acidosis. 3. Sinus tachycardia. 4. Abnormal electrolytes level. SECONDARY DISCHARGE DIAGNOSES: 1. Abnormal liver function tests due to alcohol abuse, alcoholic. 2. Alcohol abuse. 3. Cannabis abuse. 4. Fatty liver. 5. Macrocytosis. 6. Tobacco abuse. PRIMARY PROCEDURE/OPERATION: None. RADIOLOGICAL INVESTIGATION: None. SIGNIFICANT LABORATORY: WBC 3.6, hemoglobin 12.8, MCV 101, platelets 120. Sodium 139, potassium 3.9, BUN 9, creatinine 0.64. Phosphorus 5.0. Magnesium 1.6, AST 42, ALT 39. Cardiac enzymes negative. TSH 0.43. Alcohol level 234 on admission. DISCHARGE MEDICATIONS: Vitamin B12 1000 mcg p.o. daily, Prozac 20 mg p.o. daily , Pepcid 20 mg p.o. b.i.d., folic acid 1 mg p.o. daily, Lopressor 25 mg p.o. b.i.d., thiamine 100 mg p.o. daily, buspirone 15 mg p.o. b.i.d., trazodone 50 mg p.o. at bedtime. CONTRAINDICATIONS: None. CODE STATUS: FULL CODE. INPATIENT CONSULTANTS: None. ALLERGIES: PENICILLIN and SUMATRIPTAN. DISCHARGE PLAN: Post hospital, the patient is advised to follow with primary care physician and alcohol rehabilitation program. HOSPITAL COURSE: A 51-year-old female with above-mentioned medical problem who was admitted by me on 05/24/2017. Please see my HPI for further details. The patient has a long history of alcoholism and she drank alcohol at home and subsequently she decided not to drink further and that is why she was requesting medical help for detoxification and that is why she was admitted to medical floor. She was treated for alcohol withdrawal syndrome. Her abnormal electrolytes were corrected. She was having sinus tachycardia that was related with alcohol withdrawal syndrome that was also improved by the time of discharge. While in hospital, we corrected abnormal electrolytes, hydrated her with IV fluid. Today, the patient is seen and examined at bedside. Today, patient is hemodynamically stable. All new medication prescriptions sent to her pharmacy. The patient is given counseling to avoid alcohol abuse as well as follow up with alcohol rehabilitation program. Total time spent on discharge day more than 30 minutes. MTDD
--- NOTE | 2017-07-11 12:37 | EKG ---
Test Reason : Blood Pressure : / mmHG Vent. Rate : 148 BPM Atrial Rate : 148 BPM P-R Int : 114 ms QRS Dur : 076 ms QT Int : 276 ms P-R-T Axes : 007 039 044 degrees QTc Int : 433 ms Sinus tachycardia Cannot rule out Anterior infarct , age undetermined Nospecific ST-T segment abnormalities Abnormal ECG Confirmed by SHUBHAM GRAHAM ([id number]), editor continuity and script ROB GARCIA ([id number] on 07/11/2017 12:37:34 PM Referred By: Confirmed By:SHUBHAM GRAHAM
== END 2017-05-27 11:37 | disposition home or self-care (01) | DRG 897 ==
LOC: ERS 14:06 → T4-B 15:10
PROVIDERS: ADMIT Internal Medicine; ATTEND Internal Medicine
DX: F10.239 Alcohol dependence with withdrawal, unspecified (principal); E87.2 Acidosis; E87.8 Other disorders of electrolyte and fluid balance, not elsewhere classified; K76.0 Fatty (change of) liver, not elsewhere classified; F12.10 Cannabis abuse, uncomplicated; F17.210 Nicotine dependence, cigarettes, uncomplicated; R00.0 Tachycardia, unspecified; Z23 Encounter for immunization; F41.1 Generalized anxiety disorder; F32.9 Major depressive disorder, single episode, unspecified; D53.9 Nutritional anemia, unspecified; Y90.7 Blood alcohol level of 200-239 mg/100 ml
CPT/HCPCS: 36415; 80048; 80053; 80307; 82553; 83735; 84100; 84443; 84484; 85025; 90471; 90682; 93005; 96365; 96366; 96375; 99406; A4216; G0008; J1650; J2060; J2405; J2765; J3411; J7042; J7050; Q0162; Q2036; S0028

== ENCOUNTER 2017-06-14 09:18 | Emergency (ER) | payer SELFPAY ==
[2017-06-14 10:51] LABS: #Lymphocytes 1.1 thou/uL (1.20-3.40); #Monocytes 0.4 thou/uL (0.11-0.59); #Neutrophils 4.7 thou/uL (1.40-6.50); %Basophils 0.8 % (0.0-1.0); %Eosinophils 0.4 % (0.0-10.0); %Lymphocytes 17.6 % (21.0-51.0); Hematocrit 40.5 % (36.0-47.0); Mean Platelet Volume 7.3 fL (7.4-10.4); Red Blood Cell (RBC) Count 4.07 mill/uL (4.20-5.40); White Blood Cell (WBC) Count 6.3 thou/uL (4.8-10.8)
[2017-06-14 10:56] LABS: Bilirubin Negative (Negative); Blood, Urine Negative (Negative); Glucose, Urine (Dipstick) Negative (Negative); Ketone, Urine Trace mg/dL (Negative); Nitrite Negative (Negative); Protein, Urine (Dipstick) 30 mg/dL (Neg-Trace); Urobilinogen 0.2 mg/dL (0.2-1.0)
[2017-06-14 10:57] LABS: Bacteria/HPF Rare-Few HPF (None Seen); Hyaline Casts/LPF 0-3 HYALINE CAST LPF (0-3 Hyaline); RBC/HPF 0-3 HPF (0-3); Squamous Epithelial 0-3 HPF (0-3); WBC/HPF 0-3 HPF (0-3)
[2017-06-14] MEDS ORDERED: Lorazepam 2 MG/ML VIAL ONE (11:08)
[2017-06-14 11:11] LABS: ALT (SGPT) 30 U/L (8-55); AST (SGOT) 47 U/L (5-34); Alkaline Phosphatase 77 U/L (40-150); Anion Gap 16 mmol/L (10-20); BUN (Urea Nitrogen) 8 mg/dL (7.0-18.7); Bilirubin, Total 0.4 mg/dL (0.2-1.2); Calc. Creatinine Clearance 0 mL/min (70-130); Calcium 9.7 mg/dL (7.8-10.44); Carbon Dioxide 28 mmol/L (22-29); Chloride 101 mmol/L (98-107); Estimated GFR-MDRD Greater than 90; Globulin 3.4 g/dL (2.4-3.5); Protein, Total 7.9 g/dL (6.0-8.3)
== END 2017-06-14 13:35 | disposition home or self-care (01) ==
LOC: ERS 09:18
DX: F10.239 Alcohol dependence with withdrawal, unspecified (principal); E78.5 Hyperlipidemia, unspecified; I10 Essential (primary) hypertension; F41.9 Anxiety disorder, unspecified; F32.9 Major depressive disorder, single episode, unspecified; F17.210 Nicotine dependence, cigarettes, uncomplicated; Z79.899 Other long term (current) drug therapy
CPT/HCPCS: 80053; 81003; 81015; 85025; 96374; J2060

== ENCOUNTER 2017-08-23 07:41 | Inpatient (IN) | payer OTHER, SELFPAY ==
[2017-08-23] MEDS ORDERED: Ondansetron HCl/PF 4 MG/2 ML Vial ONE (08:14)
[2017-08-23] MEDS ORDERED: Lorazepam 2 MG/ML VIAL ONE (08:14)
[2017-08-23 08:19] LABS: #Lymphocytes 0.5 thou/uL (1.20-3.40); #Monocytes 0.6 thou/uL (0.11-0.59); #Neutrophils 8.6 thou/uL (1.40-6.50); %Basophils 0.3 % (0.0-1.0); %Eosinophils 0.1 % (0.0-10.0); %Lymphocytes 4.7 % (21.0-51.0); %Monocytes 6.7 % (0.0-10.0); %Neutrophils 88.3 % (42.0-75.0); Hemoglobin 15.6 g/dL (12.0-16.0); Mean Corpuscular HGB CONC 34.7 g/dL (32.0-36.0); Mean Corpuscular Hemoglobin 35.3 pg (27.0-31.0); Mean Platelet Volume 7.5 fL (7.4-10.4); Platelet Count 239 thou/uL (130-400); RBC Distribution Width 12.3 % (11.5-14.5); Red Blood Cell (RBC) Count 4.41 mill/uL (4.20-5.40); White Blood Cell (WBC) Count 9.7 thou/uL (4.8-10.8)
[2017-08-23] MEDS ORDERED: Multivitamins, Adult 10 ML, Thiamine HCl 100 MG, Folic Acid 1 MG in Dextrose 5 %-0.45 %... IV SCH (08:30)
[2017-08-23 08:35] LABS: Prothrombin Time 12.9 SEC (12.0-14.7)
[2017-08-23 08:42] LABS: ALT (SGPT) 68 U/L (8-55); AST (SGOT) 100 U/L (5-34); Albumin 4.7 g/dL (3.5-5.0); Alkaline Phosphatase 97 U/L (40-150); Anion Gap 30 mmol/L (10-20); BUN (Urea Nitrogen) 19 mg/dL (9.8-20.1); Bilirubin, Total 0.7 mg/dL (0.2-1.2); CK (CPK) 49 U/L (29-168); Calc. Creatinine Clearance 0 mL/min (70-130); Calcium 8.5 mg/dL (7.8-10.44); Carbon Dioxide 14 mmol/L (22-29); Chloride 94 mmol/L (98-107); Estimated GFR-MDRD Greater than 90; Glucose 143 mg/dL (70-105); Lipase 30 U/L (8-78); Protein, Total 7.7 g/dL (6.0-8.3); Sodium 134 mmol/L (136-145)
[2017-08-23 08:46] LABS: CKMB 1.3 ng/mL (0-6.6); Troponin I Less than 0.010 ng/mL (< 0.028)
[2017-08-23 08:48] LABS: PTT 22.6 SEC (22.9-36.1)
[2017-08-23] MEDS ORDERED: Pantoprazole 40 MG VIAL ONE (09:38)
[2017-08-23 10:38] LABS: Bilirubin Negative (Negative); Blood, Urine Trace (Negative); Clarity CLOUDY (Clear); Glucose, Urine (Dipstick) Negative (Negative); Leukocyte Negative (Negative); Nitrite Negative (Negative); Protein, Urine (Dipstick) 300 mg/dL (Neg-Trace); Specific Gravity, Urine 1.027 (1.002-1.036); Urobilinogen 0.2 mg/dL (0.2-1.0)
[2017-08-23 10:41] LABS: Bacteria/HPF None Seen HPF (None Seen); Hyaline Casts/LPF 0-3 HYALINE CAST LPF (0-3 Hyaline); RBC/HPF 0-3 HPF (0-3); Squamous Epithelial 0-3 HPF (0-3); WBC/HPF 0-3 HPF (0-3)
[2017-08-23 10:49] LABS: Bicarbonate (HCO3v) 15.7 mmol/L (1.0-85.0); CO2 Tension (PvCO2) 33.5 mmHg (41.0-51.0); Calcium, Ionized 0.85 mmol/L (1.12-1.32); Hemoglobin - Calc 12.5 g/dL (12.0-18.0); O2 Tension (PvO2) 185.5 mmHg (35.0-45.0); Potassium 4.1 mmol/L (3.4-4.7); T. Carbon Dioxide 16.8 mmol/L (1.0-85.0); vO2 Saturation-calc 99.5 % (0.0-100.0)
[2017-08-23 10:50] LABS: Amphetamine Not Detected (NotDetected); Barbiturates Screen Not Detected (NotDetected); Benzodiazepine Screen Not Detected (NotDetected); Cocaine Metabolite Screen Not Detected (NotDetected); Medtox Control Line Valid? VALID (VALID); Medtox Reader # READER 1; Methadone Not Detected (NotDetected); Methamphetamine Not Detected (NotDetected); Opiate Screen Not Detected (NotDetected); Oxycodone Screen Not Detected (NotDetected); Phencyclidine (PCP) Not Detected (NotDetected); THC/Cannabinoid Screen Not Detected (NotDetected); Tricyclic Screen Not Detected (NotDetected)
[2017-08-23] MEDS ORDERED: Ondansetron ODT 8 MG TAB ONE (11:00)
[2017-08-23] MEDS ORDERED: Diltiazem HCl 125 MG, Admixture Fee 1 EACH in Sodium Chloride 0.9% 100 ML IVPB SCH (12:00)
[2017-08-23] MEDS ORDERED: Lorazepam 2 MG/ML VIAL SLOW IVP PRN (12:35)
[2017-08-23] MEDS ORDERED: Ondansetron HCl/PF 4 MG/2 ML Vial IVP PRN (12:35)
[2017-08-23] MEDS ORDERED: Guaifenesin DM 100-10/5 ML UDCUP PO PRN (12:35)
[2017-08-23 12:36] LABS: Lactic Acid 3.8 mmol/L (0.5-2.2)
[2017-08-23] MEDS ORDERED: Metoprolol Tartrate 50 MG TAB PO SCH (12:45)
[2017-08-23] MEDS ORDERED: Diltiazem 125 MG in Sodium Chloride 0.9% 100 ML IVPB SCH (12:45)
[2017-08-23] MEDS ORDERED: Nicotine 14 MG PATCH TD SCH (13:00)
[2017-08-23] MEDS ORDERED: Digoxin 0.5 MG/2 ML AMP SLOW IVP PRN (15:19)
[2017-08-23 15:24] VITALS: BMI 26.2
[2017-08-23] MEDS ORDERED: busPIRone HCl 10 MG TAB PO SCH (15:30)
[2017-08-23] MEDS ORDERED: Lorazepam 2 MG/ML VIAL SLOW IVP SCH (15:30)
[2017-08-23] MEDS: Sodium Chloride 0.9% 1,000 ML IV SCH ×2 (15:33→15:36)
--- NOTE | 2017-08-23 18:20 | CON ---
DATE OF CONSULTATION: 08/23/2017 REASON FOR CONSULTATION: Atrial fibrillation, rapid ventricular response. HISTORY OF PRESENT ILLNESS: Ms. Contreras is a pleasant 52-year-old white female who comes to the [facility] for nausea, vomiting, and diarrhea. She has a history of inflammatory bowel syndrome apparently f rom her report, and she tells me that every time she stops drinking and goes into withdrawal, she get s an exacerbation of her diarrhea, nausea and vomiting. She stopped drinking about 15 hours ago and has already started going to withdrawal. She has got the shakes, anxiety, and her heart went into at rial fibrillation RVR recently as well. Heart rate in the 150s. She was started on diltiazem drip, so Cardiology consulted for this. She had seen a field interviewer in the past down in [place], now she h as moved to this area has not seen one since. She was told she had atrial fibrillation at that time and she also been told that she needed anticoagulation, but she declined and continues to decline tod ay. PAST MEDICAL HISTORY: 1. Hypertension. 2. Paroxysmal atrial fibrillation. 3. History of alcoholism and drinks about a liter a day. 4. History of cervical cancer surgically removed. 5. Hyperlipidemia. PAST SURGICAL HISTORY: 1. Hysterectomy. 2. Cholecystectomy. SOCIAL HISTORY: She drinks about a liter a day, has not drink in 15 hours, uses marijuana and smokes about half pack a day. FAMILY HISTORY: Noncontributory. OUTPATIENT MEDICATIONS: Include, 1. Trazodone 50 mg a day. 2. Metoprolol 25 mg twice a day. 3. Fluoxetine 20 mg once a day. 4. BuSpar 15 mg twice a day. ALLERGIES: PENICILLIN causes anaphylaxis; SUMATRIPTAN, racing heart beat. REVIEW OF SYSTEMS: A 12-point review of systems was done and is all negative unless stated in the h istory of present illness. PHYSICAL EXAMINATION: VITAL SIGNS: Temperature 99.6; pulse 154, currently at 80; respiratory rate 20; satting 97% on 2 lit ers; blood pressure 97/66. GENERAL: Awake, alert, oriented x3, little anxious with some shakes. HEENT: Normocephalic, atraumatic. NECK: Supple. LUNGS: Clear. CARDIOVASCULAR: S1, S2, no S3, S4. Irregularly irregular. Heart rate in the 80s currently. ABDOMEN: Soft, positive bowel sounds. EXTREMITIES: No edema. SKIN: Warm and dry. LABORATORY WORK: Reviewed. Sodium 134, potassium 4.0, chloride 94, carbon dioxide 14, anion gap of 30, BUN of 19, creatinine 0.65. Glucose of 143, lactic acid was 7.5 down at 3.8, calcium 8.5, magnes ium of 2, bilirubin 0.7, AST 100, ALT 60, alkaline phosphatase 97. CK 49. Troponin is negative x1. CK-MB is normal x1. Albumin of 4.7. UA isidro, cloudy, 300 protein, trace blood, 40 ketones. Beta hydroxybutyrate is a little high at 3.9. UDS is otherwise nondetectable. CBC with a white count of 9, hemoglobin 15, hematocrit 44, platelet count 239. Coags were unremarkab le. ABG was a little acidotic. VBG 7.2 with a CO2 of 33. Escherichia coli O157 is pending. ASSESSMENT AND PLAN: 1. Atrial fibrillation with rapid ventricular response: I would continue the diltiazem drip at this time. She is rate controlled after a second bolus of 5 mg IV once. We will plan on continuing dilt iazem drip for rate control. She is not interested in any anticoagulation for stroke prophylaxis. 2. We will recommend an aspirin a day. Her CHADS-VASc score would be 2 for female in hypertension. 3. Alcohol abuse going through withdrawal per primary team. 4. Diarrhea, nausea, and vomiting per primary team. Thank you for letting us participate in the care of your patient. We will follow.
[2017-08-23] MEDS ORDERED: Diazepam 5 MG TAB PO PRN (19:02)
[2017-08-23] MEDS ORDERED: Diazepam 5 MG TAB PO SCH (19:15)
[2017-08-23] MEDS: busPIRone HCl 10 MG TAB PO SCH (20:23)
[2017-08-23] MEDS: Metoprolol Tartrate 50 MG TAB PO SCH (20:24)
--- NOTE | 2017-08-23 20:50 | HP ---
REASON FOR ADMISSION: Atrial fibrillation with rapid ventricular response, nausea, and vomiting, intractable diarrhea, dehydration, metabolic acidosis, chronic alcohol abuse. HISTORY OF PRESENTING ILLNESS: The patient gives history of having severe nausea and vomiting from yesterday evening. This was associated with watery diarrhea. She claims that she has been passing diarrhea every 10 minutes from yesterday. The patient states she used to drink 1 pint of vodka on a daily basis. She has not been drinking alcohol from yesterday evening after her nausea, vomiting, and diarrhea initiated. On arrival, the patient was found to have had a bicarbonate of 14 with ketones in the urine. She was gently hydrated in the ER. The patient around 12:00 noon, went into atrial fibrillation with RVR while in the ER. She was given Cardizem push 20 mg IV and was started on 5 mg an hour Cardizem drip. She has also received lorazepam 2 mg IV push along with Zofran in the ER. Currently, patient is wanting something to drink. Has no complaints of chest pain. The patient does not have any palpitations, but although her heart rate is in the 140s at present. Total of 3 liters of IV fluid has been given in the ER. No complaints of abdominal pain. PAST MEDICAL AND SURGICAL HISTORY: History of chronic alcohol abuse, history of esophageal stricture with prior dilatation done on 02/[address] Madrigal, hypertension, generalized anxiety, chronic alcohol abuse with drinking up to 1 pint of vodka on a daily basis, seizure secondary to alcohol withdrawal, history of paroxysmal atrial fibrillation, hysterectomy, and cholecystectomy. PERSONAL HISTORY: Drinks up to 1 pint of vodka on a daily basis, smokes half pack a day. Denies substance abuse. She lives alone. Has 2 children. She is close to her daughter. FAMILY HISTORY: Mother is living and healthy. Father of liver cancer and was an alcoholic in his 60s. CURRENT MEDICATIONS: Trazodone 50 mg p.o. at bedtime p.r.n. for insomnia, Lopressor 25 mg p.o. twice daily, fluoxetine 20 mg p.o. q.a.m., buspirone 15 mg p.o. twice daily, Zocor daily. ALLERGIES: PENICILLIN, SUMATRIPTAN. REVIEW OF SYSTEMS: The following complete review of systems was negative, unless otherwise mentioned in the HPI or below: Constitutional: Weight loss or gain, ability to conduct usual activities. Skin: Rash, itching. Eyes: Double vision, pain. ENT/Mouth: Nose bleeding, neck stiffness, pain, tenderness. Cardiovascular: Palpitations, dyspnea on exertion, orthopnea. Respiratory: Shortness of breath, wheezing, cough, hemoptysis, fever or night sweats. Gastrointestinal: Poor appetite, abdominal pain, heartburn, nausea, vomiting, constipation, or diarrhea. Genitourinary: Urgency, frequency, dysuria, nocturia. Musculoskeletal: Pain, swelling. Neurologic/Psychiatric: Anxiety, depression. Allergy/Immunologic: Skin rash, bleeding tendency. PHYSICAL EXAMINATION: GENERAL: The patient is a 52-year-old female, who is currently not in any acute distress, although has atrial fibrillation with RVR with ventricular rates going up to 140s at present. VITAL SIGNS: Blood pressure 126/94, pulse 140 per minute at present, respiratory rate 18 per minute, temperature 98.7 degrees Fahrenheit, saturating 94% on 2 liters of nasal cannula. NECK: Supple, no elevated JVD. HEENT: Eyes: Extraocular muscles intact. Pupils reacting to light. Oral cavity mucous membranes are dry. No exudates or congestion. CARDIOVASCULAR SYSTEM: S1, S2 heard. Irregular rhythm, no murmur. RESPIRATORY SYSTEM: Air entry 1+ bilateral. Scattered rhonchi plus no wheezes. ABDOMEN: Soft, bowel sounds heard. No tenderness, rigidity, or guarding. EXTREMITIES: No peripheral edema or calf tenderness. VASCULAR SYSTEM: Peripheral pulses 1+ bilateral. No ischemic ulcerations or gangrene. CENTRAL NERVOUS SYSTEM: No gross focal deficits seen. PSYCHIATRIC: The patient is a bit anxious, otherwise no hallucinations or delusions. LABORATORY AND X-RAY FINDINGS: Beta hydroxybutyrate 3.96. Urine drug screen is negative. Urine ketones is 40 mg per deciliter. Lactate is 7.5, AST 100, ALT 68, alkaline phosphatase 97, total bilirubin 0.7, lipase is 30. First set of cardiac enzymes are negative. Albumin is 4.7, BUN is 19, creatinine 0.6. Venous blood gas done shows a pH of 7.28. PT/INR is within normal limits. PTT 22. White count of 9, H and H 15 and 44, MCV is 102, platelet count 239 with 88 % neutrophils. CLINICAL IMPRESSION AND PLAN: The patient will be admitted to either IMCU or telemetry for atrial fibrillation with rapid ventricular response, alcohol abuse with likely withdrawal, intractable nausea, vomiting, and diarrhea. We will continue her Cardizem on 10 mg an hour and will also give one dose of 50 mg Lopressor orally. She will be on 50 mg twice daily, thereafter. She will be on banana bag to alternate with normal saline at 80 mL per hour. I have spoken to Dr. Mathew for Cardiology and Dr. Galindo for Gastroenterology. The patient's lipase is within normal limits and her abdomen is benign with no signs or symptoms to suggest pancreatitis for now. We will continue her buspirone, Prozac as before. Patient will be on ASE protocol for withdrawal. If her atrial fibrillation with rapid ventricular response continues to worsen, she will be digitalized during her stay. We will continue to closely monitor her. Patient has confirmed that she is determined to quit alcohol at present. [facility]
[2017-08-23] MEDS ORDERED: Famotidine/PF 20 mg/2ml Vial SLOW IVP SCH (21:00)
[2017-08-23] MEDS: Acetaminophen 325 MG TAB PO PRN (23:51)
[2017-08-24] MEDS: Sodium Chloride 0.9% 1,000 ML IV SCH ×2 (01:20→12:13)
[2017-08-24 04:38] LABS: Anion Gap 9 mmol/L (10-20); BUN (Urea Nitrogen) 6 mg/dL (9.8-20.1); Calc. Creatinine Clearance 126 mL/min (70-130); Carbon Dioxide 25 mmol/L (22-29); Chloride 103 mmol/L (98-107); Estimated GFR-MDRD Greater than 90; Glucose 101 mg/dL (70-105); Potassium 3.2 mmol/L (3.5-5.1); Sodium 134 mmol/L (136-145)
[2017-08-24 05:21] LABS: Band 3 % (5-11); Hemoglobin 11.5 g/dL (12.0-16.0); Lymphocytes 30 % (21-51); MDiff Complete? YES; Mean Corpuscular HGB CONC 34.9 g/dL (32.0-36.0); Mean Corpuscular Hemoglobin 35.8 pg (27.0-31.0); Mean Platelet Volume 8.1 fL (7.4-10.4); Monocytes 6 % (0-10); Neutrophil 61 % (42-75); PLT Morphology Comment Appears Decreased; Platelet Count 118 thou/uL (130-400); RBC Distribution Width 12.6 % (11.5-14.5); Red Blood Cell (RBC) Count 3.21 mill/uL (4.20-5.40); White Blood Cell (WBC) Count 3.9 thou/uL (4.8-10.8)
[2017-08-24] MEDS: Diazepam 5 MG TAB PO PRN ×2 (09:06→12:50)
[2017-08-24] MEDS: Famotidine 20 MG TAB PO SCH ×2 (09:06→20:31)
[2017-08-24] MEDS: Metoprolol Tartrate 50 MG TAB PO SCH ×2 (09:06→20:31)
[2017-08-24] MEDS: Cyanocobalamin (Vitamin B-12) 1,000 MCG TAB PO SCH (09:06)
[2017-08-24] MEDS: FLUoxetine HCl 20 MG CAP PO SCH (09:06)
[2017-08-24] MEDS: Folic Acid 1 MG TAB PO SCH (09:06)
[2017-08-24] MEDS: Enoxaparin Sodium 40 MG/0.4 ML SYRINGE SC SCH (09:07)
[2017-08-24] MEDS: busPIRone HCl 10 MG TAB PO SCH ×2 (09:08→20:31)
[2017-08-24] MEDS: Magnesium Oxide 400 MG TAB PO SCH (09:10)
[2017-08-24] MEDS: Vancomycin HCl 25 MG/ML Oral PO SCH ×4 (09:41→20:31)
[2017-08-24] MEDS: Multivitamins, Adult 10 ML, Folic Acid 1 MG, Thiamine HCl 100 MG in Dextrose 5 %-0.45 %... IV SCH (09:42)
--- NOTE | 2017-08-24 13:47 | PDOC.PN ---
- Subjective Encounter Start Date: 08/24/17 Encounter Start Time: 12:40 Subjective: no nausea now, tolerating liq diet -: still has diarrhea, no abd pain -: off cardizem drip in sinus rhythm - Objective Resuscitation Status: Resuscitation Status FULL:Full Resuscitation MAR Reviewed: Yes Vital Signs & Weight: Vital Signs (12 hours) Temp Pulse Resp BP BP Pulse Ox 08/24/17 11:21 98.9 F 65 22 H 140/86 97 08/24/17 08:00 98.8 F 99 21 H 147/76 H 97 08/24/17 07:00 98.8 F 99 21 H 147/76 H 97 08/24/17 04:00 99.1 F 92 20 119/64 119/64 100 08/24/17 02:00 127/64 Weight Weight 147 lb 12.8 oz I&O: 08/23/17 08/24/17 08/25/17 06:59 06:59 06:59 Intake Total 1890 350 Output Total 2480 Balance -590 350 Result Diagrams: 08/24/17 03:31 08/24/17 03:31 Phys Exam - Physical Examination HEENT: PERRLA, moist MMs Neck: no JVD, supple Respiratory: no wheezing, no rales Cardiovascular: RRR, no significant murmur Gastrointestinal: soft, non-tender, no distention, positive bowel sounds Musculoskeletal: no edema, pulses present Neurological: non-focal, moves all 4 limbs Psychiatric: A&O x 3 Dx/Plan (1) Afib Code(s): I48.91 - UNSPECIFIED ATRIAL FIBRILLATION Status: Acute Qualifiers: Atrial fibrillation type: paroxysmal Qualified Code(s): I48.0 - Paroxysmal atrial fibrillation (2) Metabolic acidosis Code(s): E87.2 - ACIDOSIS Status: Resolved (3) C. difficile colitis Status: Acute (4) Alcohol withdrawal syndrome Code(s): F10.239 - ALCOHOL DEPENDENCE WITH WITHDRAWAL, UNSPECIFIED Status: Acute Qualifiers: Complication of substance-induced condition: uncomplicated Qualified Code(s ): F10.230 - Alcohol dependence with withdrawal, uncomplicated (5) Alcohol abuse Code(s): F10.10 - ALCOHOL ABUSE, UNCOMPLICATED Status: Chronic (6) Tobacco abuse Code(s): Z72.0 - TOBACCO USE Status: Chronic - Plan on oral lopressor bid, off cardizem drip -: oral vanc for cdiff -: continue ASE protocol, watch for delerium -: oob to chair and mobilize as tolerated -: oral solid diet * . Review of Systems - Medications/Allergies Allergies/Adverse Reactions: Allergies Allergy/AdvReac Type Severity Reaction Status Date / Time Penicillins Allergy Verified 01/24/17 08:44 sumatriptan [From Imitrex] Allergy Verified 07/15/15 17:54 sumatriptan succinate Allergy Verified 01/24/17 08:44 [From Imitrex] Medications: Current Medications Acetaminophen (Tylenol) 650 mg PO Q4H PRN PRN Reason: Headache/Fever or Pain Last Admin: 08/23/17 23:51 Dose: 650 mg Albuterol/Ipratropium (Duoneb) 3 ml NEB [id number] [facility] Last Admin: 08/24/17 08:07 Dose: Not Given Buspirone HCl (Buspar) 15 mg PO BID [facility] Last Admin: 08/24/17 09:08 Dose: 15 mg Cyanocobalamin (Vitamin B-12) 1,000 mcg PO DAILY [facility] Last Admin: 08/24/17 09:06 Dose: 1,000 mcg Diazepam (Valium) 5 mg PO Q4H PRN PRN Reason: FOR ASE 10 OR GREATER Last Admin: 08/24/17 12:50 Dose: 5 mg Enoxaparin Sodium (Lovenox) 40 mg SC 0900 [facility] Last Admin: 08/24/17 09:07 Dose: 40 mg Famotidine (Pepcid) 20 mg PO BID [facility] Last Admin: 08/24/17 09:06 Dose: 20 mg Fluoxetine HCl (Prozac) 20 mg PO DAILY [facility] Last Admin: 08/24/17 09:06 Dose: 20 mg Folic Acid (Folvite) 1 mg PO DAILY [facility] Last Admin: 08/24/17 09:06 Dose: 1 mg Guaifenesin/Dextromethorphan (Robitussin Dm) 15 ml PO Q4H PRN PRN Reason: Cough Sodium Chloride (Normal Saline 0.9%) 1,000 mls @ 80 mls/hr IV .[id number] [facility] Last Admin: 08/24/17 12:13 Dose: Not Given Multivitamins 10 ml/ Folic Acid 1 mg/ Thiamine HCl 100 mg / Dextrose/Sodium Chloride 1,011.2 mls @ 80 mls/hr IV 0800 [facility] Last Admin: 08/24/17 09:42 Dose: 1,011.2 mls Lorazepam (Ativan) 1 mg SLOW IVP Q6H PRN PRN Reason: Anxiety/Agitation Magnesium Oxide (Magnesium Oxide) 400 mg PO DAILY [facility] Last Admin: 08/24/17 09:10 Dose: 400 mg Metoprolol Tartrate (Lopressor) 50 mg PO BID [facility] Last Admin: 08/24/17 09:06 Dose: 50 mg Nicotine (Nicoderm Patch) 21 mg TD DAILY [facility] Ondansetron HCl (Zofran) 4 mg IVP Q6H PRN PRN Reason: Nausea/Vomiting Sodium Chloride (Flush - Normal Saline) 10 ml IVF Q12HR [facility] Last Admin: 08/24/17 09:10 Dose: 10 ml Sodium Chloride (Flush - Normal Saline) 10 ml IVF PRN PRN PRN Reason: Saline Flush Vancomycin HCl (First Vancomycin) 125 mg PO QID [facility] Last Admin: 08/24/17 12:14 Dose: 125 mg
--- NOTE | 2017-08-24 14:18 | CON ---
DATE OF CONSULTATION: 08/24/2017 REASON FOR CONSULTATION: Nausea/vomiting, diarrhea. CONSULTING PHYSICIAN: Dr. Hollingsworth. HISTORY OF PRESENT ILLNESS: The patient is a 52-year-old female with past medical history of hypertension, anxiety, paroxysmal atrial fibrillation and alcohol abuse with seizures upon withdrawal in the past, presenting with acute onset of nausea, vomiting, and diarrhea. She states that she was in her usual state of health until approximately 48-72 hours ago when she decided that she wanted to stop drinking alcohol for which she was drinking approximately 1 pint of vodka a day. Within 12 hours after cessation of drinking alcohol, she began to experience increased nausea and vomiting with approximately 3-4 episodes of emesis over the next 24 hours. All episodes of vomiting were bilious and nonbloody and orange in coloration. At about the same time, she also states that she had acute onset of diarrhea that had been worsening over the last 3 weeks characterizes approximately 5-6 watery bowel movements daily; however, over the last 48-72 hours, she states that her diarrhea significantly worsened to the point where she was having approximately 1 bowel movement every 10-20 minutes. Upon questioning whether or not she has had episodes like this in the past, she states that every time that she has stopped drinking alcohol in the past, she has experienced acute onset of nausea and vomiting and this is very characteristic of that. Upon evaluation in the ED, she was placed on CIWA protocol with benzodiazepine administration and she states that she is feeling much better today with complete resolution of her nausea and vomiting over the last 12 hours; however, she does continue to have significant number of watery bowel movements. Currently, denies nausea, vomiting, fevers, chills, shortness of breath, dysphagia or odynophagia, abdominal pain, melena or hematochezia. REVIEW OF SYSTEMS: A 10 category review of systems was obtained with all responsive negative except for the pertinent positives as listed in the HPI. PAST MEDICAL HISTORY: Per HPI. PAST SURGICAL HISTORY: Hysterectomy, cholecystectomy. FAMILY HISTORY: Liver cancer (father), alcoholic liver disease (father). SOCIAL HISTORY: Smokes approximately 1 pack per day of tobacco. Drinks approximately 1 pint of vodka daily with last drink approximately 48-72 hours ago. Denies any illicit drug use. OUTPATIENT MEDICATIONS: Trazodone 50 mg at night, Lopressor 25 mg b.i.d., fluoxetine 20 mg every day, buspirone 15 mg b.i.d., Zocor daily. ALLERGIES: PENICILLIN, SUMATRIPTAN. PHYSICAL EXAMINATION: VITAL SIGNS: Temperature 98.9, pulse 65, blood pressure 140/86, respiratory rate 22, satting 97% on room air. GENERAL: The patient is lying comfortably in bed, in no acute distress. Alert and oriented x4. NECK: Supple. No JVD noted. CARDIOVASCULAR: Regular rate and rhythm with no discernible murmurs, gallops or rubs. RESPIRATORY: Clear to auscultation bilaterally with no discernible wheezes or rales. ABDOMEN: Normoactive bowel sounds, soft, nondistended. Tenderness to palpation within the midepigastric right upper quadrant and right lower quadrant , some guarding with no rebound tenderness. EXTREMITIES: No cyanosis, clubbing or edema. LABORATORY DATA: CBC with a white blood cell count of 3.9, hemoglobin 11.5, hematocrit 32.9, platelets 118. Chemistry with a sodium of 134, potassium 3.2, chloride 103, CO2 25, BUN 6, creatinine 0.56, platelets 101, AST 100, ALT 68, alkaline phosphatase 97, total bilirubin 0.7, albumin 4.7. IMAGING STUDIES: No current GI imaging studies are available for review. ASSESSMENT AND PLAN: The patient is a 52-year-old female with past medical history of hypertension, anxiety, paroxysmal atrial fibrillation and alcohol abuse with history of seizures on withdrawal, presenting with nausea, vomiting, and diarrhea. Nausea and vomiting. The patient presenting with acute onset of nausea and vomiting shortly after cessation of alcohol where she was drinking approximately 1 pint of vodka daily. Her episode of nausea and vomiting is very similar to alcohol withdrawal that she has experienced in the past; however , upon admission to [facility], she was placed on antiemetic control as well as CIWA protocol with complete resolution of her nausea and vomiting at this time. At this time, the most likely reason for her vomiting would be acute alcohol withdrawal with resolution with administration of benzodiazepines. RECOMMENDATIONS: 1. Continue antiemetic control with medications as you are doing. 2. Would recommend continuation of CIWA protocol for alcohol withdrawal. Diarrhea. Patient also presenting with a history of irritable bowel syndrome, but worsening of her diarrhea over the last 3 weeks and significant worsening over the last 48-72 hours, having approximately 1 bowel movement every 20 minutes. Upon admission to the ER, infectious stool studies were noted to be positive for Clostridium difficile, which could definitely generate the current clinical picture that we are seeing now. Subsequently, she was started on oral vancomycin 125 mg q.6 hours this morning and has received approximately 2 doses thus far. At this time, this is the most likely reason for her diarrhea with other infectious stool studies negative, but her current clinical picture could be IBS in conjunction with acute Clostridium difficile infection. RECOMMENDATIONS: 1. Continue with treatment of Clostridium difficile colitis as you are doing with oral vancomycin 125 mg q.6 x 14 days. 2. Continue to monitor clinically for resolution or lessening of her diarrhea. If her diarrhea does not brando or lessen after approximately 72 hours after initiation of treatment, we would consider other etiologies versus increasing dose of oral vancomycin. We will sign off at this point. Please reconsult if the patient has not had resolution of her diarrhea within 3-4 days while on treatment with oral vancomycin. Please call with any additional questions. MTDD
[2017-08-24] MEDS ORDERED: Nicotine 21 MG PATCH TD SCH (17:00)
[2017-08-24] MEDS: Nicotine 21 MG PATCH TD SCH (17:11)
--- NOTE | 2017-08-24 17:11 | PDOC.CTH ---
Cardiology Progress Note - Subjective No new issues. She is much less anxious today. - Objective Vital Signs Temp Pulse Resp BP BP Pulse Ox 08/24/17 15:31 97.4 F L 92 17 151/87 H 99 08/24/17 11:21 98.9 F 65 22 H 140/86 97 08/24/17 08:00 98.8 F 99 21 H 147/76 H 97 08/24/17 07:00 98.8 F 99 21 H 147/76 H 97 Weight 147 lb 12.8 oz 08/23/17 08/24/17 08/25/17 06:59 06:59 06:59 Intake Total 1890 710 Output Total 2480 1825 Balance -590 -1115 - Physical Examination General/Neuro: alert & oriented x3, NAD Neck: no JVD present Lungs: CTA, unlabored respirations Heart: RRR Abdomen: NT/ND Extremities: other: (no edema.) - Telemetry Telemetry Rhythm: NSR - Labs Result Diagrams: 08/24/17 03:31 08/24/17 03:31 Troponin/CKMB CK-MB (CK-2) 1.3 ng/mL (0-6.6) 08/23/17 08:05 Troponin I Less than 0.010 ng/mL (< 0.028) 08/23/17 08:05 - Assessment/Plan 1. Afib RVR, back in sinus. 2. Alcohol withdrawal. 3. non compliance PLAN: - She is not interested in full anticoagulation. Aspirin alone for stroke prophylaxis. - Will stop diltiazem drip and will continue home dose of BB. - Replace K - Will sign off. Please call with any questions.
[2017-08-24] MEDS ORDERED: Ziprasidone 20 MG VIAL IM SCH ×2 (17:15→17:45)
[2017-08-24] MEDS ORDERED: Sterile Water 10 ML VIAL FS SCH (17:15)
[2017-08-25] MEDS: Sodium Chloride 0.9% 1,000 ML IV SCH (02:55)
[2017-08-25] MEDS: Diazepam 5 MG TAB PO PRN (04:35)
[2017-08-25 04:37] LABS: Anion Gap 13 mmol/L (10-20); BUN (Urea Nitrogen) Less than 4 mg/dL (9.8-20.1); Calc. Creatinine Clearance 121 mL/min (70-130); Carbon Dioxide 26 mmol/L (22-29); Chloride 104 mmol/L (98-107); Estimated GFR-MDRD Greater than 90; Glucose 84 mg/dL (70-105); Potassium 3.5 mmol/L (3.5-5.1); Sodium 139 mmol/L (136-145)
[2017-08-25 04:42] LABS: #Lymphocytes 1.5 thou/uL (1.20-3.40); #Monocytes 0.4 thou/uL (0.11-0.59); #Neutrophils 2.3 thou/uL (1.40-6.50); %Basophils 1.1 % (0.0-1.0); %Lymphocytes 35.7 % (21.0-51.0); %Monocytes 8.3 % (0.0-10.0); Hemoglobin 12.5 g/dL (12.0-16.0); Mean Corpuscular HGB CONC 34.1 g/dL (32.0-36.0); Mean Platelet Volume 8.8 fL (7.4-10.4); Platelet Count 112 thou/uL (130-400); RBC Distribution Width 12.4 % (11.5-14.5); Red Blood Cell (RBC) Count 3.58 mill/uL (4.20-5.40); White Blood Cell (WBC) Count 4.3 thou/uL (4.8-10.8)
[2017-08-25] MEDS: Enoxaparin Sodium 40 MG/0.4 ML SYRINGE SC SCH (08:50)
[2017-08-25] MEDS: Multivitamins, Adult 10 ML, Folic Acid 1 MG, Thiamine HCl 100 MG in Dextrose 5 %-0.45 %... IV SCH (08:50)
[2017-08-25] MEDS: Vancomycin HCl 25 MG/ML Oral PO SCH ×4 (08:50→20:59)
[2017-08-25] MEDS: FLUoxetine HCl 20 MG CAP PO SCH (08:51)
[2017-08-25] MEDS: Cyanocobalamin (Vitamin B-12) 1,000 MCG TAB PO SCH (08:51)
[2017-08-25] MEDS: Folic Acid 1 MG TAB PO SCH (08:51)
[2017-08-25] MEDS: Magnesium Oxide 400 MG TAB PO SCH (08:51)
[2017-08-25] MEDS: Famotidine 20 MG TAB PO SCH ×2 (08:51→20:15)
[2017-08-25] MEDS: Metoprolol Tartrate 50 MG TAB PO SCH ×2 (08:51→20:15)
[2017-08-25] MEDS: busPIRone HCl 10 MG TAB PO SCH ×2 (08:51→20:14)
[2017-08-25] MEDS ORDERED: Ziprasidone 20 MG CAP PO SCH (11:00)
--- NOTE | 2017-08-25 13:10 | PDOC.PN ---
- Subjective Encounter Start Date: 08/25/17 Encounter Start Time: 12:30 Subjective: feels better -: no chest pain or palp - Objective Resuscitation Status: Resuscitation Status FULL:Full Resuscitation MAR Reviewed: Yes Vital Signs & Weight: Vital Signs (12 hours) Temp Pulse Resp BP BP Pulse Ox 08/25/17 12:00 98.6 F 80 20 138/80 98 08/25/17 08:00 98.7 F 61 20 96 08/25/17 07:46 98.7 F 61 20 147/84 H 98 08/25/17 07:17 59 L 16 98 08/25/17 04:00 97.0 F L 72 20 148/91 H 148/91 H 97 Weight Weight 143 lb 12.8 oz I&O: 08/24/17 08/25/17 08/26/17 06:59 06:59 06:59 Intake Total 1890 2150 360 Output Total 2480 2775 Balance -590 -952 360 Result Diagrams: 08/25/17 03:52 08/25/17 03:52 Phys Exam - Physical Examination HEENT: PERRLA, moist MMs Neck: no JVD, supple Respiratory: no wheezing, no rales Cardiovascular: RRR, no significant murmur Gastrointestinal: soft, non-tender, positive bowel sounds Musculoskeletal: no edema, pulses present Neurological: non-focal, moves all 4 limbs Psychiatric: A&O x 3 Dx/Plan (1) Alcohol withdrawal syndrome Code(s): F10.239 - ALCOHOL DEPENDENCE WITH WITHDRAWAL, UNSPECIFIED Status: Acute Qualifiers: Complication of substance-induced condition: uncomplicated Qualified Code(s ): F10.230 - Alcohol dependence with withdrawal, uncomplicated (2) C. difficile colitis Status: Acute (3) Afib Code(s): I48.91 - UNSPECIFIED ATRIAL FIBRILLATION Status: Resolved Qualifiers: Atrial fibrillation type: paroxysmal Qualified Code(s): I48.0 - Paroxysmal atrial fibrillation Comment: in sinus rhythm (4) Metabolic acidosis Code(s): E87.2 - ACIDOSIS Status: Resolved (5) Alcohol abuse Code(s): F10.10 - ALCOHOL ABUSE, UNCOMPLICATED Status: Chronic (6) Tobacco abuse Code(s): Z72.0 - TOBACCO USE Status: Chronic - Plan start low dose oral geodon for off and on hallucinations with withdrawal -: on oral vanc for c.diff, will start oral thiamine once banana bag is done -: may tx to med floor if ok with -: is tolerating oral diet, dc iv fluids -: lopressor, prozac and buspar * . Review of Systems - Medications/Allergies Allergies/Adverse Reactions: Allergies Allergy/AdvReac Type Severity Reaction Status Date / Time Penicillins Allergy Verified 01/24/17 08:44 sumatriptan [From Imitrex] Allergy Verified 07/15/15 17:54 sumatriptan succinate Allergy Verified 01/24/17 08:44 [From Imitrex] Medications: Current Medications Acetaminophen (Tylenol) 650 mg PO Q4H PRN PRN Reason: Headache/Fever or Pain Last Admin: 08/23/17 23:51 Dose: 650 mg Albuterol/Ipratropium (Duoneb) 3 ml NEB [id number] [facility] Last Admin: 08/25/17 07:17 Dose: 3 ml Buspirone HCl (Buspar) 15 mg PO BID [facility] Last Admin: 08/25/17 08:51 Dose: 15 mg Cyanocobalamin (Vitamin B-12) 1,000 mcg PO DAILY [facility] Last Admin: 08/25/17 08:51 Dose: 1,000 mcg Enoxaparin Sodium (Lovenox) 40 mg SC 0900 [facility] Last Admin: 08/25/17 08:50 Dose: 40 mg Famotidine (Pepcid) 20 mg PO BID [facility] Last Admin: 08/25/17 08:51 Dose: 20 mg Fluoxetine HCl (Prozac) 20 mg PO DAILY [facility] Last Admin: 08/25/17 08:51 Dose: 20 mg Folic Acid (Folvite) 1 mg PO DAILY [facility] Last Admin: 08/25/17 08:51 Dose: 1 mg Guaifenesin/Dextromethorphan (Robitussin Dm) 15 ml PO Q4H PRN PRN Reason: Cough Sodium Chloride (Normal Saline 0.9%) 1,000 mls @ 80 mls/hr IV .[id number] [facility] Last Admin: 08/25/17 02:55 Dose: 1,000 mls Multivitamins 10 ml/ Folic Acid 1 mg/ Thiamine HCl 100 mg / Dextrose/Sodium Chloride 1,011.2 mls @ 80 mls/hr IV 0800 [facility] Last Admin: 08/25/17 08:50 Dose: 1,011.2 mls Lorazepam (Ativan) 1 mg SLOW IVP Q6H PRN PRN Reason: Anxiety/Agitation Last Admin: 08/24/17 15:33 Dose: 1 mg Magnesium Oxide (Magnesium Oxide) 400 mg PO DAILY [facility] Last Admin: 08/25/17 08:51 Dose: 400 mg Metoprolol Tartrate (Lopressor) 50 mg PO BID [facility] Last Admin: 08/25/17 08:51 Dose: 50 mg Nicotine (Nicoderm Patch) 21 mg TD Q24HR [facility] Last Admin: 08/24/17 17:11 Dose: 21 mg Ondansetron HCl (Zofran) 4 mg IVP Q6H PRN PRN Reason: Nausea/Vomiting Sodium Chloride (Flush - Normal Saline) 10 ml IVF Q12HR [facility] Last Admin: 08/25/17 08:51 Dose: 10 ml Sodium Chloride (Flush - Normal Saline) 10 ml IVF PRN PRN PRN Reason: Saline Flush Vancomycin HCl (First Vancomycin) 125 mg PO QID [facility] Last Admin: 08/25/17 08:50 Dose: 125 mg Ziprasidone (Geodon) 20 mg PO QAM-[facility]
[2017-08-25] MEDS: Nicotine 21 MG PATCH TD SCH (16:44)
[2017-08-25] MEDS: Acetaminophen 325 MG TAB PO PRN (20:14)
[2017-08-25] MEDS ORDERED: Acetaminophen 325 MG TAB PO SCH (22:45)
[2017-08-26 05:36] LABS: Anion Gap 16 mmol/L (10-20); BUN (Urea Nitrogen) 6 mg/dL (9.8-20.1); Calc. Creatinine Clearance 122 mL/min (70-130); Calcium 9.3 mg/dL (7.8-10.44); Carbon Dioxide 23 mmol/L (22-29); Chloride 102 mmol/L (98-107); Estimated GFR-MDRD Greater than 90; Glucose 80 mg/dL (70-105); Potassium 3.3 mmol/L (3.5-5.1); Sodium 138 mmol/L (136-145)
[2017-08-26] MEDS: Cyanocobalamin (Vitamin B-12) 1,000 MCG TAB PO SCH (08:02)
[2017-08-26] MEDS: Ziprasidone 20 MG CAP PO SCH (08:02)
[2017-08-26] MEDS: busPIRone HCl 10 MG TAB PO SCH ×2 (08:02→20:20)
[2017-08-26] MEDS: Famotidine 20 MG TAB PO SCH ×2 (08:02→20:20)
[2017-08-26] MEDS: Folic Acid 1 MG TAB PO SCH (08:02)
[2017-08-26] MEDS: FLUoxetine HCl 20 MG CAP PO SCH (08:02)
[2017-08-26] MEDS: Metoprolol Tartrate 50 MG TAB PO SCH ×2 (08:03→20:19)
[2017-08-26] MEDS: Magnesium Oxide 400 MG TAB PO SCH (08:03)
[2017-08-26] MEDS: Enoxaparin Sodium 40 MG/0.4 ML SYRINGE SC SCH (08:03)
[2017-08-26] MEDS: Multivitamins, Adult 10 ML, Folic Acid 1 MG, Thiamine HCl 100 MG in Dextrose 5 %-0.45 %... IV SCH (08:04)
[2017-08-26] MEDS: Vancomycin HCl 25 MG/ML Oral PO SCH (08:16)
--- NOTE | 2017-08-26 10:09 | PDOC.PN ---
- Subjective Encounter Start Date: 08/26/17 Encounter Start Time: 09:45 Subjective: had 2 formed stool this am -: no palp or chest pain -: says porsche has helped her - Objective Resuscitation Status: Resuscitation Status FULL:Full Resuscitation MAR Reviewed: Yes Vital Signs & Weight: Vital Signs (12 hours) Temp Pulse Resp BP BP Pulse Ox 08/26/17 07:56 98.4 F 80 18 159/87 H 159/87 H 100 08/26/17 04:00 97.9 F 73 22 H 157/90 H 157/90 H 95 Weight Weight 143 lb 12.8 oz I&O: 08/25/17 08/26/17 08/27/17 06:59 06:59 06:59 Intake Total 2150 2000 Output Total 2775 800 Balance -625 1200 Result Diagrams: 08/25/17 03:52 08/26/17 04:31 Phys Exam - Physical Examination HEENT: PERRLA, moist MMs Neck: no JVD, supple Respiratory: no wheezing, no rales Cardiovascular: RRR, no significant murmur Gastrointestinal: soft, non-tender, positive bowel sounds Musculoskeletal: no edema, pulses present Neurological: non-focal, moves all 4 limbs Psychiatric: A&O x 3 Dx/Plan (1) Alcohol withdrawal syndrome Code(s): F10.239 - ALCOHOL DEPENDENCE WITH WITHDRAWAL, UNSPECIFIED Status: Acute Qualifiers: Complication of substance-induced condition: uncomplicated Qualified Code(s ): F10.230 - Alcohol dependence with withdrawal, uncomplicated (2) C. difficile colitis Status: Acute (3) Afib Code(s): I48.91 - UNSPECIFIED ATRIAL FIBRILLATION Status: Resolved Qualifiers: Atrial fibrillation type: paroxysmal Qualified Code(s): I48.0 - Paroxysmal atrial fibrillation Comment: in sinus rhythm (4) Metabolic acidosis Code(s): E87.2 - ACIDOSIS Status: Resolved (5) Alcohol abuse Code(s): F10.10 - ALCOHOL ABUSE, UNCOMPLICATED Status: Chronic (6) Tobacco abuse Code(s): Z72.0 - TOBACCO USE Status: Chronic - Plan switch vanc po to flagyl po -: continue lopressor -: dc plan in am -: dc banana bag after current one -: to amb as tolerated * . Review of Systems - Medications/Allergies Allergies/Adverse Reactions: Allergies Allergy/AdvReac Type Severity Reaction Status Date / Time Penicillins Allergy Verified 01/24/17 08:44 sumatriptan [From Imitrex] Allergy Verified 07/15/15 17:54 sumatriptan succinate Allergy Verified 01/24/17 08:44 [From Imitrex] Medications: Current Medications Acetaminophen (Tylenol) 650 mg PO Q4H PRN PRN Reason: Headache/Fever or Pain Last Admin: 08/25/17 20:14 Dose: 650 mg Albuterol/Ipratropium (Duoneb) 3 ml NEB Q6H PRN PRN Reason: SOB &/or Wheezing Buspirone HCl (Buspar) 15 mg PO BID [facility] Last Admin: 08/26/17 08:02 Dose: 15 mg Cyanocobalamin (Vitamin B-12) 1,000 mcg PO DAILY [facility] Last Admin: 08/26/17 08:02 Dose: 1,000 mcg Enoxaparin Sodium (Lovenox) 40 mg SC 0900 [facility] Last Admin: 08/26/17 08:03 Dose: 40 mg Famotidine (Pepcid) 20 mg PO BID [facility] Last Admin: 08/26/17 08:02 Dose: 20 mg Fluoxetine HCl (Prozac) 20 mg PO DAILY [facility] Last Admin: 08/26/17 08:02 Dose: 20 mg Folic Acid (Folvite) 1 mg PO DAILY [facility] Last Admin: 08/26/17 08:02 Dose: 1 mg Guaifenesin/Dextromethorphan (Robitussin Dm) 15 ml PO Q4H PRN PRN Reason: Cough Multivitamins 10 ml/ Folic Acid 1 mg/ Thiamine HCl 100 mg / Dextrose/Sodium Chloride 1,011.2 mls @ 80 mls/hr IV 0800 [facility] Last Admin: 08/26/17 08:04 Dose: 1,011.2 mls Lorazepam (Ativan) 1 mg SLOW IVP Q6H PRN PRN Reason: Anxiety/Agitation Last Admin: 08/24/17 15:33 Dose: 1 mg Magnesium Oxide (Magnesium Oxide) 400 mg PO DAILY [facility] Last Admin: 08/26/17 08:03 Dose: 400 mg Metoprolol Tartrate (Lopressor) 50 mg PO BID [facility] Last Admin: 08/26/17 08:03 Dose: 50 mg Nicotine (Nicoderm Patch) 21 mg TD Q24HR [facility] Last Admin: 08/25/17 16:44 Dose: 21 mg Ondansetron HCl (Zofran) 4 mg IVP Q6H PRN PRN Reason: Nausea/Vomiting Last Admin: 08/25/17 20:51 Dose: 4 mg Sodium Chloride (Flush - Normal Saline) 10 ml IVF Q12HR [facility] Last Admin: 08/26/17 08:04 Dose: 10 ml Sodium Chloride (Flush - Normal Saline) 10 ml IVF PRN PRN PRN Reason: Saline Flush Last Admin: 08/25/17 20:52 Dose: 10 ml Vancomycin HCl (First Vancomycin) 125 mg PO QID [facility] Last Admin: 08/26/17 08:16 Dose: 125 mg Ziprasidone (Geodon) 20 mg PO QAM[facility] Last Admin: 08/26/17 08:02 Dose: 20 mg
[2017-08-26] MEDS: metroNIDAZOLE 500 MG TAB PO SCH ×2 (15:57→20:20)
[2017-08-26] MEDS: Nicotine 21 MG PATCH TD SCH (17:45)
[2017-08-26] MEDS ORDERED: Temazepam 15 MG CAP PO PRN (18:22)
[2017-08-26] MEDS: Acetaminophen 325 MG TAB PO PRN (20:21)
[2017-08-27 06:35] LABS: Anion Gap 10 mmol/L (10-20); BUN (Urea Nitrogen) 11 mg/dL (9.8-20.1); Calc. Creatinine Clearance 107 mL/min (70-130); Calcium 9.9 mg/dL (7.8-10.44); Carbon Dioxide 31 mmol/L (22-29); Chloride 99 mmol/L (98-107); Estimated GFR-MDRD Greater than 90; Glucose 102 mg/dL (70-105); Potassium 3.9 mmol/L (3.5-5.1); Sodium 136 mmol/L (136-145)
[2017-08-27 08:43] VITALS: BP 151/96; TEMP 98.1
[2017-08-27] MEDS: Cyanocobalamin (Vitamin B-12) 1,000 MCG TAB PO SCH (09:59)
[2017-08-27] MEDS: metroNIDAZOLE 500 MG TAB PO SCH (09:59)
[2017-08-27] MEDS: FLUoxetine HCl 20 MG CAP PO SCH (09:59)
[2017-08-27] MEDS: Ziprasidone 20 MG CAP PO SCH (09:59)
[2017-08-27] MEDS: Metoprolol Tartrate 50 MG TAB PO SCH (09:59)
[2017-08-27] MEDS: Enoxaparin Sodium 40 MG/0.4 ML SYRINGE SC SCH (10:00)
[2017-08-27] MEDS: Folic Acid 1 MG TAB PO SCH (10:00)
[2017-08-27] MEDS: Famotidine 20 MG TAB PO SCH (10:00)
[2017-08-27] MEDS: Magnesium Oxide 400 MG TAB PO SCH (10:00)
[2017-08-27] MEDS: busPIRone HCl 10 MG TAB PO SCH (10:00)
--- NOTE | 2017-08-27 12:43 | PDOC.PN ---
- Subjective Encounter Start Date: 08/27/17 Encounter Start Time: 09:40 Subjective: feels better, is amb and eating well - Objective Resuscitation Status: Resuscitation Status FULL:Full Resuscitation MAR Reviewed: Yes Vital Signs & Weight: Vital Signs (12 hours) Temp Pulse Resp BP BP Pulse Ox 08/27/17 08:25 98.1 F 73 20 151/96 H 100 08/27/17 08:00 98.1 F 73 20 100 08/27/17 04:00 97.9 F 73 16 128/85 128/85 97 Weight Weight 145 lb 11.2 oz I&O: 08/26/17 08/27/17 08/28/17 06:59 06:59 06:59 Intake Total 2000 500 Output Total 800 Balance 1200 500 Result Diagrams: 08/25/17 03:52 08/27/17 06:04 Phys Exam - Physical Examination HEENT: PERRLA, moist MMs Neck: no JVD, supple Respiratory: no wheezing, no rales Cardiovascular: RRR, no significant murmur Gastrointestinal: soft, non-tender, positive bowel sounds Musculoskeletal: no edema, pulses present Neurological: non-focal, moves all 4 limbs Psychiatric: A&O x 3 Dx/Plan (1) Alcohol withdrawal syndrome Code(s): F10.239 - ALCOHOL DEPENDENCE WITH WITHDRAWAL, UNSPECIFIED Status: Acute Qualifiers: Complication of substance-induced condition: uncomplicated Qualified Code(s ): F10.230 - Alcohol dependence with withdrawal, uncomplicated (2) C. difficile colitis Status: Acute (3) Afib Code(s): I48.91 - UNSPECIFIED ATRIAL FIBRILLATION Status: Resolved Qualifiers: Atrial fibrillation type: paroxysmal Qualified Code(s): I48.0 - Paroxysmal atrial fibrillation Comment: in sinus rhythm (4) Metabolic acidosis Code(s): E87.2 - ACIDOSIS Status: Resolved (5) Alcohol abuse Code(s): F10.10 - ALCOHOL ABUSE, UNCOMPLICATED Status: Chronic (6) Tobacco abuse Code(s): Z72.0 - TOBACCO USE Status: Chronic - Plan hemostable -: dc pt home on geodon daily -: lopressor and asp, is in sinus from last 50hrs, no anticoag needed -: counselled reg smoking and alcohol cessation * .
--- NOTE | 2017-08-28 12:44 | DIS ---
DATE OF ADMISSION: 08/23/2017 DATE OF DISCHARGE: 08/27/2017 DISCHARGE DISPOSITION: To home. PRIMARY DISCHARGE DIAGNOSES: 1. Alcohol withdrawal syndrome. 2. Clostridium difficile colitis. 3. Paroxysmal atrial fibrillation in sinus rhythm. 4. Metabolic acidosis due to above. 5. Alcohol abuse. 6. Tobacco abuse. PROCEDURES DONE DURING HOSPITALIZATION: Echo with 2D Doppler showed EF of 55-60 %, no obvious thrombus seen per echo report. H&H 12 and 36, platelet count 112 , MCV is 103. INR 1.0. Discharge BUN and creatinine of 11 and 0.6. Discharge bicarbonate is 31, lipase was 30 on the day of admission. Stool for C. diff and showed antigen positive by PCR testing and toxin was detected as well by PCR. DISCHARGE MEDICATIONS: Aspirin 81 mg p.o. daily, buspirone 15 mg twice daily, vitamin B12 1000 mcg p.o. b.i.d., Pepcid 20 mg twice daily, fluoxetine 20 mg daily, folic acid 1 mg p.o. daily, Lopressor 25 mg twice daily, Flagyl 500 mg p.o. 3 times daily for a total of 10 days. Nicoderm 21 mg transdermal patch for 14 days, simvastatin 10 mg p.o. at bedtime, thiamine 100 mg p.o. daily, trazodone 50 mg p.o. at bedtime, Geodon 20 mg p.o. q.a.m. daily. ALLERGIES: PENICILLIN and SUMATRIPTAN. DISCHARGE PLAN: The patient to follow up with primary care physician in 1 week. BRIEF COURSE DURING HOSPITALIZATION: The patient initially came to ER with complaints of severe nausea, vomiting and diarrhea. She also gave history of drinking up to 1 pint of vodka on a daily basis. She was not drinking from last 24 hours due to severe nauseating feeling and was essentially admitted for severe dehydration, metabolic acidosis, and alcohol withdrawal on admission. The patient also went into atrial fibrillation with RVR on admission and was placed on Cardizem drip to IMCU. She responded well to the above measures and soon went into sinus rhythm. She was continued on Lopressor twice daily. She has had consultation with Dr. Mathew for Cardiology and Dr. Levar Sequeira for Gastroenterology. Her stool examinations came back positive for C. diff and was placed on vancomycin initially and later switched over to Flagyl. The patient's alcohol withdrawal symptoms was slowly subsiding. She responded well to Geodon for mood disorder plus withdrawal symptoms. The patient has made up her mind not to drink alcohol anymore and is also wanting a nicotine patch upon discharge. Prior to discharge, she is ambulating and eating well. She has maintained in sinus rhythm with no obvious thrombus seen on the echo. She was counseled to follow up with her primary care physician in 1 week. The patient is also aware of her being on Flagyl due to insurance issues, as she could not afford vancomycin and the potential interaction of Flagyl if she starts drinking. Please see a face to face documentation on [employer] [facility] for the day of discharge. MTDD
== END 2017-08-27 13:36 | disposition home or self-care (01) | DRG 897 ==
LOC: ERS 07:41 → ERHOLD 10:23 → IMCU/EMU 14:52 → 2NO 08-25 22:17
PROVIDERS: ADMIT Internal Medicine; ATTEND Internal Medicine
DX: F10.239 Alcohol dependence with withdrawal, unspecified (principal); A04.72 Enterocolitis due to Clostridium difficile, not specified as recurrent; E87.2 Acidosis; I48.0 Paroxysmal atrial fibrillation; E86.0 Dehydration; E78.5 Hyperlipidemia, unspecified; F17.210 Nicotine dependence, cigarettes, uncomplicated; F41.1 Generalized anxiety disorder; I10 Essential (primary) hypertension; Z88.0 Allergy status to penicillin; Z88.8 Allergy status to other drugs, medicaments and biological substances; Z79.899 Other long term (current) drug therapy
CPT/HCPCS: 36415; 51701; 80048; 80053; 80306; 81003; 81015; 82010; 82330; 82550; 82553; 82803; 83605; 83690; 83735; 84484; 85025; 85610; 85730; 87045; 87046; 87324; 87449; 87493; 87899; 93005; 93306; 94640; 94760; 96361; 96365; 96366; 96368; 96375; 96376; A4216; A4353; C9113; J1650; J2060; J2405; J3411; J3475; J7042; J7050

== ENCOUNTER 2017-09-15 12:31 | Day surgery (SDC) | payer OTHER, SELFPAY ==
[2017-09-15 13:18] LABS: #Basophils 0.1 thou/uL (0.0-0.2); #Lymphocytes 1.8 thou/uL (1.20-3.40); #Monocytes 0.9 thou/uL (0.11-0.59); #Neutrophils 4.2 thou/uL (1.40-6.50); %Basophils 0.9 % (0.0-1.0); %Eosinophils 0.6 % (0.0-10.0); %Lymphocytes 25.3 % (21.0-51.0); %Monocytes 12.8 % (0.0-10.0); %Neutrophils 60.4 % (42.0-75.0); Hemoglobin 15.1 g/dL (12.0-16.0); Mean Corpuscular HGB CONC 35.2 g/dL (32.0-36.0); Mean Corpuscular Volume 99.3 fl (81.0-99.0); Mean Platelet Volume 7.9 fL (7.4-10.4); Platelet Count 284 thou/uL (130-400); RBC Distribution Width 11.9 % (11.5-14.5); Red Blood Cell (RBC) Count 4.32 mill/uL (4.20-5.40)
[2017-09-15 13:35] LABS: ALT (SGPT) 51 U/L (8-55); AST (SGOT) 37 U/L (5-34); Albumin 5.1 g/dL (3.5-5.0); Alkaline Phosphatase 88 U/L (40-150); Anion Gap 16 mmol/L (10-20); BUN (Urea Nitrogen) 11 mg/dL (9.8-20.1); Bilirubin, Total 0.5 mg/dL (0.2-1.2); Calc. Creatinine Clearance 0 mL/min (70-130); Calcium 10.6 mg/dL (7.8-10.44); Carbon Dioxide 23 mmol/L (22-29); Chloride 105 mmol/L (98-107); Estimated GFR-MDRD 88; Globulin 3.3 g/dL (2.4-3.5); Glucose 114 mg/dL (70-105); Potassium 3.7 mmol/L (3.5-5.1); Protein, Total 8.4 g/dL (6.0-8.3); Sodium 140 mmol/L (136-145)
[2017-09-15] MEDS ORDERED: Lidocaine 1% PF 5 ML VIAL ONE (14:20)
[2017-09-15] MEDS ORDERED: PROPOFOL 200 MG/20 ML VIAL ONE (14:20)
[2017-09-15] MEDS ORDERED: Succinylcholine Chloride 20 MG/ML 10 ml SYRINGE FS ONE (14:20)
[2017-09-15] MEDS ORDERED: Ondansetron HCl/PF 4 MG/2 ML Vial ONE (14:30)
[2017-09-15] MEDS ORDERED: Morphine 2 MG/ML SYRINGE ONE (14:30)
--- NOTE | 2017-09-15 14:39 | CON ---
DATE OF CONSULTATION: 09/15/2017 REASON FOR CONSULTATION: Esophageal foreign body. HISTORY OF PRESENT ILLNESS: Bhavya Contreras is a 52-year-old woman with a history of ongoing tobacco and alcohol abuse. She is previously been seen by my GI colleague, Dr. Avi Madrigal. She had an EGD in 02/2016, which demonstrated a lower esophageal food bolus impaction with a tight stricture, which she dilated to 16.5 mm. She was recently hospitalized about a month ago and seen by my collea galilea, Dr. Sequeira for alcohol withdrawal. She presented to the Emergency Department today complaining o f foreign body sensation in the chest. She says she was eating pork last night and felt as if it lod ged in the mid chest that sensation has persisted all the way until this afternoon and her chest pain started getting worse. She has been unable to eat or drink anything or even handle her secretions a nd she has been spitting into a bag. She has no other complaints at this time. She is hemodynamical ly stable. REVIEW OF SYSTEMS: Full review of systems including constitutional, head, eyes, ears, nose, throat, GI, , cardiovascular, respiratory, musculoskeletal, and neurologic systems is negative except as no kane in the HPI. PAST MEDICAL HISTORY: Hysterectomy, cholecystectomy, alcohol abuse, tobacco abuse, alcohol withdrawa l, esophageal stricture, status post dilation 02/2016. ALLERGIES: PENICILLIN and SUMATRIPTAN. OUTPATIENT MEDICATIONS: Trazodone, metoprolol, fluoxetine, buspirone, lorazepam. FAMILY HISTORY: Noncontributory. SOCIAL HISTORY: The patient has a significant alcohol history up to 1 liter per day, often vodka. S he abuses marijuana and she smokes cigarettes about a half a pack per day since age 21. PHYSICAL EXAMINATION: VITAL SIGNS: Pulse 110, blood pressure 150/104, temperature 99.0 with 95% oxygen saturation on room air. GENERAL: A 52-year-old woman sitting up in bed, uncomfortable, in mild distress, spitting into a bag . SKIN: No jaundice, no rash visible or palpable. EYES: No scleral icterus. Extraocular movements intact. ENT: Mucous membranes moist, no oral lesions. LYMPH: No submandibular, supraclavicular lymphadenopathy. THYROID: Nontender to palpation. HEART: Regular rate and rhythm. LUNGS: Clear to auscultation bilaterally. ABDOMEN: Soft, nontender to palpation. EXTREMITIES: No peripheral edema. NEUROLOGICAL: Cranial nerves II-XII intact bilaterally. No focal deficits. LABORATORY STUDIES: WBC 7.0, hemoglobin 15.1, platelets 284, from last month INR was 1.0. Sodium 14 0, potassium 3.7, BUN 11, creatinine 0.70. ASSESSMENT AND PLAN: 1. Esophageal foreign body. 2. Chronic dysphagia. 3. History of esophageal stricture, status post dilation to 16.5 mm back in 02/2016. Patient's pres entation is consistent with recurrent food bolus impaction in the esophagus. We will plan for EGD th is afternoon for food bolus removal and depending on the findings, may perform esophageal dilation. She will likely need to be on acid suppression going forward and to follow up as an outpatient with Duc Madrigal, who has seen her before. Anticipate, she will likely be able to be discharged home followin g the procedure.
[2017-09-15] MEDS ORDERED: Fentanyl 250 MCG/5 ML VIAL ONE (17:08)
[2017-09-15] MEDS ORDERED: Midazolam HCl 2 mg/2 ml Vial ONE (17:08)
--- NOTE | 2017-09-15 22:45 | OP ---
DATE OF PROCEDURE: 09/15/2017 GI ENDOSCOPY NOTE SURGEON: Sebastian Ho M.D. MANAGER QUANTITATIVE SURGEON: None. PROCEDURE: Esophagogastroduodenoscopy, diagnostic. INDICATION: 1. Suspected esophageal foreign body. 2. Dysphagia. MEDICATIONS: See anesthesia record. FINDINGS: After discussion of the risks, benefits and alternatives of the procedure, informed consen t was obtained and witnessed. Pre-endoscopic cardiopulmonary examination was satisfactory. Timeout was performed before sedation was achieved. Sedation was achieved with anesthesia assistance in the endoscopy unit. A Pentax adult upper endoscope was placed into the oropharynx, passed through the cr icopharyngeus under direct visualization. The esophageal mucosa appeared normal in the proximal and mid esophagus. In the distal esophagus at the GE junction, there is a large ulceration. There is a visible vessel there, but no evidence of any bleeding. This likely represents maceration from a rece nt food bolus impaction. The endoscope was advanced beyond the GE junction without difficulty. Retr oflexion in the gastric fundus demonstrated some edematous mucosa at the GE junction, but this did ap pear benign. There was no evidence of any esophageal or gastric varices noted. The gastric mucosa a ppeared normal. The endoscope was advanced through the pylorus and into the first and second portion s of the duodenum, which also appeared normal. The upper endoscope was then completely withdrawn and the patient allowed to recover. The patient tolerated the procedure well. There were no immediate post-procedure complications. IMPRESSION: 1. Ulcer in the distal esophagus. 2. Otherwise, normal esophagogastroduodenoscopy. 3. No evidence of food bolus impaction. RECOMMENDATIONS: 1. Twice-daily Protonix at 40 mg dosing. 2. Plan to repeat EGD in [address] Madrigal for reassessment of esophageal ulcer and likely esoph ageal dilation.
--- NOTE | 2017-09-26 14:23 | EKG ---
Test Reason : Blood Pressure : / mmHG Vent. Rate : 117 BPM Atrial Rate : 117 BPM P-R Int : 156 ms QRS Dur : 070 ms QT Int : 328 ms P-R-T Axes : 046 017 053 degrees QTc Int : 457 ms Sinus tachycardia Possible Left atrial enlargement Possible Inferior infarct , age undetermined Abnormal ECG Confirmed by LILLIANA GUARDADO M.D. ([id number]), film or videotape editor ROB GARCIA ([id number] on 09/26/2017 2:21:43 PM Referred By: Confirmed By:LILLIANA GUARDADO M.D.
== END 2017-09-15 19:15 | disposition home or self-care (01) ==
LOC: ERS 12:31 → SDC/OP 15:26
PROVIDERS: ATTEND Internal Medicine
PROC: 0DJ08ZZ Inspection of Upper Intestinal Tract, Via Natural or Artificial Opening Endoscopic (ICD-10-PCS; principal; 2017-09-15)
DX: K22.10 Ulcer of esophagus without bleeding (principal); F17.210 Nicotine dependence, cigarettes, uncomplicated; F10.10 Alcohol abuse, uncomplicated; F12.10 Cannabis abuse, uncomplicated; Z88.0 Allergy status to penicillin; Z88.8 Allergy status to other drugs, medicaments and biological substances; Z98.890 Other specified postprocedural states; Z79.899 Other long term (current) drug therapy
CPT/HCPCS: 80053; 85025; 93005; 96361; 96374; 99406; J2001; J2250; J2270; J2405; J2704; J3010